=== PATIENT | female | born 1960 | race Caucasian/White ===

== ENCOUNTER 2022-03-08 23:33 | Observation (INO) | payer OTHER, SELFPAY ==
--- NOTE | 2022-03-08 | IR_ITS ---
APPROVED REPORT Patient Location: Emergent Dietitian Teaching: BLUE Ayala RT (R) PROCEDURES Right radial artery cannulation Left heart catheterization with ventriculogram INDICATION Typical angina, EKG suggestive of ST elevation HI SCAI INDICATION EKG suggestive of ST elevation HI and chest pain Informed consent was obtained prior to the procedure. COMPLICATIONS None Estimated Blood Loss: Less than 10 ML TECHNIQUE One percent lidocaine used to anesthetize the right anterior aspect of the wrist. The right radial artery was accessed via the Seldinger technique. A 6 Latvian sheath was placed in the right radial artery. 200 mcg of nitroglycerin and 2000 U Heparin were given through the arterial sheath. The EBU 3.5 guide catheter, JR4 diagnostic catheter and pigtail catheter were also used to perform left heart catheterization, left ventriculogram and selective coronary angiogram. At the end of the procedure the good Daily with sheath was removed good hemostasis was achieved using Traclet band, patient was transferred to the postop holding area in stable condition. ANGIOGRAPHIC RESULTS The left main artery Patent The left anterior descending artery Patent The circumflex artery Patent The right coronary artery Dominant and patent The HOLDER ventriculogram reveals Apical akinesia and hyperdynamic basal segments. EF 35 to 40%. Takotsubo cardiomyopathy The left ventricular end-diastolic pressure 20 mmHg IMPRESSION Normal coronary arteries Takotsubo cardiomyopathy EF 35 to 40% Recommend standard GDMT treatment for heart failure with reduced EF Electronically signed by : Kailash Patrick, 04/04/2022 11:35:15
[2022-03-08 22:16] VITALS: BMI 21.4
[2022-03-08 23:00] VITALS: BP 91/61; PULSE 83; RESP 17; O2SAT 100
[2022-03-08 23:05] VITALS: BP 98/65; PULSE 83; RESP 18; O2SAT 99
[2022-03-08 23:07] VITALS: PULSE 78
[2022-03-08 23:10] VITALS: BP 95/81; PULSE 88; RESP 17; O2SAT 97
[2022-03-08 23:15] VITALS: BP 100/66; PULSE 91; RESP 18; O2SAT 98
[2022-03-08 23:39] VITALS: BMI 22.3
[2022-03-08 23:44] LABS: Coronavirus 19, PCR Not Detected (NotDetected); Influenza A, PCR Not Detected (NotDetected); Influenza B, PCR Not Detected (NotDetected)
[2022-03-08 23:45] VITALS: BP 97/55; PULSE 86; RESP 17; TEMP 36.8; O2SAT 97
--- NOTE | 2022-03-08 23:45 | PC.NURSE ---
PT ARRIVED VIA STRETCHER FROM COMPUTER ART INSTRUCTOR @ [id number]
--- NOTE | 2022-03-08 23:57 | PC.NURSE ---
pt admitted to 218 from lift slab operator
[2022-03-09] VITALS (14 sets, daily range): BP systolic 92–124; BP diastolic 55–78; PULSE 74–91; RESP 12–19; TEMP 36.5–36.8; O2SAT 96–100
--- NOTE | 2022-03-09 | PC.NURSE ---
lab called to see if needed to collect ordered troponin, RN asked laborer cutting tool rn's if still need to collect and was told no that it was prior to pt going to laborer cutting tool
[2022-03-09 00:10] LABS: CATHL Activated Clotting Time 222 SEC (74-125)
[2022-03-09 06:08] LABS: Basophils % 0.2 % (0.1-2.0); Eosinophils % 0.3 % (0.1-12.0); Hematocrit 36.3 % (37.0-47.0); Hemoglobin 11.8 g/dL (12.2-16.2); Lymphocytes # 0.5 K/mm3 (0.7-4.5); Lymphocytes % 8.9 % (10-50); Mean Corpuscular HGB Conc 32.5 g/dL (31.8-35.4); Mean Corpuscular Hemoglobin 30.3 pg (27.0-31.2); Mean Corpuscular Volume 93.1 fl (81-99); Mean Platelet Volume 7.9 fl (7.4-10.4); Monocytes # 0.1 K/mm3 (0.1-1.0); Monocytes % 1.3 % (1.7-9.3); Neutrophils # 4.9 K/mm3 (1.8-7.8); Neutrophils % 89.4 % (37.0-80.0); Platelet Count 254 K/mm3 (142-424); Red Cell Distribution Width 12.9 % (11.5-17.5); White Blood Count 5.4 K/mm3 (4.8-10.8)
[2022-03-09 06:10] LABS: MANUAL DIFFERENTIAL MANUAL DIFFERENTIAL (MANUAL DIFF)
--- NOTE | 2022-03-09 06:15 | ECG_ITS ---
APPROVED REPORT Exam: Resting ECG HR:66 bpm ECG Measurements Heart Rate 66 AXES MO 171 P 35 QRSd 105 QRS -38 QT 479 T 237 QTc 493 Conclusion SINUS RHYTHM LEFT AXIS DEVIATION [QRS AXIS < -30] ST DEVIATION AND MODERATE T-WAVE ABNORMALITY, CONSIDER ANTEROLATERAL ISCHEMIA [-0.1+ mV T-WAVE IN V3-V6] ST DEVIATION AND MODERATE T-WAVE ABNORMALITY, CONSIDER INFERIOR ISCHEMIA [-0.1+ mV T-WAVE IN II/aVF] ABNORMAL ECG UNCONFIRMED REPORT Electronically signed by : Steven Stone MD 03/09/2022 20:36:20
[2022-03-09 06:18] LABS: Chloride 109 mmol/L (98-107)
[2022-03-09 06:19] LABS: Potassium 3.7 mmoL/L (3.5-5.1); Sodium 138 mmol/L (136-145)
[2022-03-09 06:21] LABS: Alanine Aminotransferase 24 U/L (12-78); Aspartate Amino Transferase 44 U/L (14-36); Blood Urea Nitrogen 17 mg/dl (7-17); Creatinine Clearance Estimated 54 mL/min (50-200); Estimated Glomerular Filt Rate 101 ml/min (>60); GFR (African American) 122 ML/MIN (>60)
[2022-03-09 06:22] LABS: Albumin Level 3.8 g/dl (3.5-5.0); Albumin/Globulin Ratio 1.5 (1.1-1.8); Alkaline Phosphatase 51 U/L (38-126); Anion Gap 8.7 mEq/L (5-15); Calcium 9.3 mg/dl (8.4-10.2); Carbon Dioxide 24 mmol/L (22.0-30.0); Chol/HDL Ratio 3.4 (1-3.5); Cholesterol 186 mg/dl (140-200); Globulin 2.5 g/dL (1.3-3.2); Glucose 178 mg/dl (74-100); HDL Cholesterol 54 mg/dl (40-60); Total Protein,Serum 6.3 g/dl (6.3-8.2); Triglycerides 35 mg/dl (30-150); VLDL Cholesterol 7 mg/dL (0-40)
[2022-03-09 06:26] LABS: Bilirubin,Total < 0.1 mg/dl (0.2-1.3)
[2022-03-09 06:32] LABS: Lymphocytes % 16 % (10-50); Neutrophils % 84 % (42-76); Total Cells Counted 100
[2022-03-09 06:33] LABS: Direct LDL Cholesterol 102.78 mg/dL (100-129); Platelet Estimate Normal; RBC Morphology Normal
[2022-03-09 06:53] LABS: Thyroid Stimulating Hormone 1.08 uIU/mL (0.465-4.68)
--- NOTE | 2022-03-09 08:20 | HMH.PHAVTE ---
[facility] Pharm[facility] VTE Monitoring - Patient Demographics Admission date: 03/09/22 Report Date: 03/09/22 Time: 08:20 Allergies/Adverse Reactions: Patient Allergies levofloxacin [From Levaquin] Allergy (Verified 03/08/22 22:16) Height: 1.63 m Weight: 59.222 kg - VTE Risk Labs: VTE Related Lab Results Hgb 11.8 g/dL (12.2-16.2) L 03/09/22 05:34 Hct 36.3 % (37.0-47.0) L 03/09/22 05:34 Plt Count 254 K/mm3 (142-424) 03/09/22 05:34 BUN 17 mg/dl (7-17) 03/09/22 05:34 Creatinine 0.60 mg/dl (0.52-1.04) 03/09/22 05:34 Estimated Creat Clear 54 mL/min (50-200) 03/09/22 05:34 Clinical Trial Participant: No - Prophylaxis VTE Prophylaxis Ordered?: Yes Types of VTE Prophylaxis: TEDS Knee High
--- NOTE | 2022-03-09 08:33 | HMH.HPDC ---
General - General Admission date:: 03/08/22 Discharge date: 03/09/22 *Admission Date: 03/09/22 *Chief complaint: Chest pain with shortness of breath *History of present illness: Ms. Humphrey is a 61-year-old female with a history of hypertension, chronic bronchitis and allergies who presented to the [facility] emergency room complaining of left upper abdominal and left lower chest discomfort. This was associated with some shortness of breath. She describes the pain as intermittent and sharp. With evaluation in the emergency room at [facility] they felt like she was having a STEMI with EKG changes and she was transferred to [facility] and with direct to the Pilot Fuel Engineer. Dr. Stallings was consulted. Catheterization report is pending but patient states that her arteries were normal and she did not have a heart attack. She apparently had some steroids at [facility] which corrected her shortness of breath. This morning she feels fine and is hungry and would like some food. Laboratory data shows normal sodium and potassium and renal function. TSH was normal at 1.08. [facility] History Medical History: Reports:: Asthma, Hypertension *Have you ever received a pneumonia vaccine?: Yes *Have you received a flu vaccine this season?: Yes Other Medical History: Reports: Arthritis. Denies: Hypothyroidism Other Surgeries: Yes: Appendectomy Comment: Nasal surgery for blockage; surgery on her little finger. - *Social History Smoking Status: Former smoker Alcohol Intake: never *Occupational Status:: retired Housing: house Household Members: spouse *Travel in the last 8 weeks: None Family Hx:: No significant family history Review of Systems - Constitutional Denies fever(s) - Eyes Denies change in vision - ENT Reports post nasal drip, Denies ear pain, Denies headache(s), Denies sore throat - *Cardiovascular Reports chest pain, Reports shortness of breath, Denies leg swelling - *Respiratory Reports shortness of breath, Reports wheezing, Denies cough - *Gastrointestinal Reports heartburn, Denies abdominal pain, Denies vomiting blood, Denies bright, red blood in stools, Denies black, tarry stools, Denies nausea, Denies vomiting - *Genitourinary Denies difficulty urinating - *Musculoskeletal Reports joint pain, Denies abnormal walking - *Neurologic Denies abnormal walking, Denies abnormal speech, Denies dizziness, Denies headache(s), Denies lack of coordination, Denies seizure-like activity Exam Vital signs and Labs for Last 24 Hours: Temp Pulse Resp BP Pulse Ox 97.7 F 80 17 104/69 L 98 03/09/22 08:00 03/09/22 08:00 03/09/22 08:00 03/09/22 08:00 03/09/22 08:00 Laboratory Results - last 24 hr 03/08/22 22:19: Activated Clotting Time 222 H* 03/08/22 23:03: SARS-CoV-2 (PCR) Not detected, Influenza A Untype (PCR) Not detected, Influenza Type B (PCR) Not detected 03/09/22 05:34: WBC 5.4, RBC 3.90 L, Hgb 11.8 L, Hct 36.3 L, MCV 93.1, MCH 30.3, MCHC 32.5, RDW 12.9, Plt Count 254, MPV 7.9, Neut % (Auto) 89.4 H, Lymph % (Auto) 8.9 L, [place] % (Auto) 1.3 L, Eos % (Auto) 0.3, Baso % (Auto) 0.2, Neut # (Auto) 4.9, Lymph # (Auto) 0.5 L, [place] # (Auto) 0.1, Eos # (Auto) 0.0, Baso # (Auto) 0.0, Total Counted 100, Neutrophils % (Manual) 84 H, Lymphocytes % (Manual) 16, Platelet Estimate Normal, RBC Morphology Normal 03/09/22 05:34: Sodium 138, Potassium 3.7, Chloride 109 H, Carbon Dioxide 24, Anion Gap 8.7, BUN 17, Creatinine 0.60, Estimated Creat Clear 54, Estimated GFR 101, Est GFR ( Amer) 122, Glucose 178 H, Calcium 9.3, Total Bilirubin < 0.1 L, AST 44 H, ALT 24, Alkaline Phosphatase 51, Total Protein 6.3, Albumin 3.8, Globulin 2.5, Albumin/Globulin Ratio 1.5, Triglycerides 35, Cholesterol 186, LDL Cholesterol Direct 102.78, VLDL Cholesterol 7, HDL Cholesterol 54, Cholesterol/HDL Ratio 3.4, TSH 1.08 I & O for Last 24 hours: Intake & Output 03/06/22 03/07/22 03/08/22 03/09/22 11:59 11:59 11:59 11:59
--- NOTE | 2022-03-09 10:01 | CT_ITS ---
FINAL REPORT CLINICAL HISTORY: enlarged aortic root FINDINGS: Thin section axial CT images of the chest were obtained with contrast. 3D reformatted images were also obtained. This study was performed with techniques to keep radiation doses as low as reasonably achievable (ALARA). Individualized dose reduction techniques using automated exposure control or adjustment of mA and/or kV according to the patient's size were employed. There is no evidence of pulmonary embolism. There is ectasia of the ascending aorta at 4 cm. There is no evidence of thoracic aortic dissection. There is no evidence of mediastinal or hilar mass or adenopathy. There is mild scarring. There is mild bibasilar atelectasis. There is a small left pleural effusion. Limited images of the upper abdomen demonstrate soft tissue partially surrounding the upper abdominal aorta of uncertain significance. IMPRESSION: Ectasia of the ascending aorta at 4 cm. Soft tissue partially surrounds the upper abdominal aorta of uncertain significance. 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 Follow-up abdomen CT may be helpful. Reviewed, Interpreted and Dictated by Laci Taylor III, MD Transcribed by Behzad Noel Authenticated and [facility]
--- NOTE | 2022-03-09 10:20 | HMH.CNCARD ---
History of Present Illness Consult date: 03/09/22 Requesting physician: Saurabh Rae Consult reason: shortness of breath Chief complaint: SOA History of present illness: This is a 61-year-old white female who presented to an [facility] hospital with shortness of breath. The patient states that she had been short of breath for approximately 2 days prior to going to the hospital and felt as if she was having an asthma exacerbation. She states that she was short of breath with any exertion and improved with rest. She also described pain in the central aspect of her chest that was intermittent and sharp. She states that this would occur with exertion as well and improved with rest. While she was at [facility] emergency department they felt like she was having EKG changes consistent with a STEMI. The patient was transferred here to [facility] and went directly to the cardiac catheterization laboratory. The on-call steel rigger took the patient to the Learning Center Instructor and she had normal coronary arteries with LV dysfunction most consistent with Takotsubo's cardiomyopathy. She does report that she feels much better at this time. She denies any shortness of breath today. She denies any chest pain or pressure. She denies any edema. She denies any fever, chills, nausea, vomiting, diarrhea, PND or orthopnea. The patient is adamant that she would like to be discharged home today. [facility] History I have reviewed the patient's past medical history: Yes Medical History: Reports:: Asthma, Hypertension *Have you ever received a pneumonia vaccine?: Yes *Have you received a flu vaccine this season?: Yes Other Medical History: Reports: Arthritis. Denies: Hypothyroidism Other Surgeries: Yes: Appendectomy - *Social History Smoking Status: Former smoker Alcohol Intake: never *Occupational Status:: retired Housing: house Household Members: spouse *Travel in the last 8 weeks: None Family Hx:: No significant family history Meds Home Medications Medication Instructions Recorded Confirmed Type Cetirizine HCl [Zyrtec 10mg Tab*] 10 mg PO DAILY 03/08/22 03/08/22 History lisinopriL [Lisinopril] 5 mg PO DAILY 03/08/22 03/08/22 History Montelukast Sodium [Singulair 10mg 10 mg PO PM 03/09/22 03/09/22 History tablet] Allergies Allergy/AdvReac Type Severity Reaction Status Date / Time levofloxacin [From Levaquin] Allergy Verified 03/08/22 22:16 Exam Vital signs and Labs for Last 24 Hours: Temp Pulse Resp BP Pulse Ox 97.7 F 80 17 104/69 L 100 03/09/22 08:00 03/09/22 08:00 03/09/22 08:00 03/09/22 08:00 03/09/22 08:00 Laboratory Results - last 24 hr 03/08/22 22:19: Activated Clotting Time 222 H* 03/08/22 23:03: SARS-CoV-2 (PCR) Not detected, Influenza A Untype (PCR) Not detected, Influenza Type B (PCR) Not detected 03/09/22 05:34: WBC 5.4, RBC 3.90 L, Hgb 11.8 L, Hct 36.3 L, MCV 93.1, MCH 30.3, MCHC 32.5, RDW 12.9, Plt Count 254, MPV 7.9, Neut % (Auto) 89.4 H, Lymph % (Auto) 8.9 L, [place] % (Auto) 1.3 L, Eos % (Auto) 0.3, Baso % (Auto) 0.2, Neut # (Auto) 4.9, Lymph # (Auto) 0.5 L, [place] # (Auto) 0.1, Eos # (Auto) 0.0, Baso # (Auto) 0.0, Total Counted 100, Neutrophils % (Manual) 84 H, Lymphocytes % (Manual) 16, Platelet Estimate Normal, RBC Morphology Normal 03/09/22 05:34: Sodium 138, Potassium 3.7, Chloride 109 H, Carbon Dioxide 24, Anion Gap 8.7, BUN 17, Creatinine 0.60, Estimated Creat Clear 54, Estimated GFR 101, Est GFR ( Amer) 122, Glucose 178 H, Calcium 9.3, Total Bilirubin < 0.1 L, AST 44 H, ALT 24, Alkaline Phosphatase 51, Total Protein 6.3, Albumin 3.8, Globulin 2.5, Albumin/Globulin Ratio 1.5, Triglycerides 35, Cholesterol 186, LDL Cholesterol Direct 102.78, VLDL Cholesterol 7, HDL Cholesterol 54, Cholesterol/HDL Ratio 3.4, TSH 1.08 I & O for Last 24 hours: Intake & Output 07/29/03/07/22 03/08/22 03/09/22 23:59 23:59 23:59 23:59 Output Total 0 / 0 Balance 0 / 0 Weight 130 lb 9 oz
--- NOTE | 2022-03-09 23:32 | CA_ITS ---
APPROVED REPORT EXAM: Comprehensive 2D, Doppler, and color-flow Echocardiogram Bench Assembler: Gwen Perez CRT Ht: 5 ft 4 in Wt: 125lbs BSA: 1.60 BP: 116/78 mmHg Indications: Chest Pain, Shortness of Breath, Hypertension/HDD 2D Dimensions LVOT 1.75 cm (M/F) 1.5-2.5 LA Volume 25.60 mL LA Volume Index 16.00 mL/m2 (M/F) 16-34 M-Mode Dimensions RVDd 2.43 cm (0.9-2.6) LA Diam 2.43 cm (1.9-4.0) LVDd 4.58 cm (3.5-5.7) Ao Diam 4.19 cm (2.0-3.7) LVDs 3.19 cm (3.5-5.7) IVSd 1.24 cm (0.6-1.1) PWd 0.86 cm (0.6-1.1) EF (Teich) 57.80% FS 30.30% EDV (Teich) 96.30 mL TAPSE 2.66 (<1.7) ESV (Teich) 40.60 mL LV Diastology E Decel Time 157.00 (160-240 msec) E/A Ratio 0.99 MED E' 4.90 (< 7 cm/sec) MED A' 12.10 cm/s E'/MED E' Ratio 17.69 (>14) LAT E' 6.40 (<10 cm/sec) LAT A' 15.70 cm/s E/LAT E' Ratio 13.55 (>14) Aortic Valve AI PHT 388.00 ms AO Peak GR. 9.70 mmHg Mitral Valve MV E Max Donny. 87.00 (40-130 cm/s) MV A Velocity 87.00 (40-130 cm/s) E/A Ratio 0.99 MV Decel. Time 157.00 (160-240 ms) MV PHT 46.00 ms Pulmonary Valve PV Peak Velocity 143.00 (50-150 cm/s) Tricuspid Valve TR P. Velocity 233.00 cm/s RAP Estimate 10.00 mmHg RVSP 31.70 mmHg Left Ventricle Left atrium is mildly enlarged, left ventricle is normal size mild concentric left ventricular hypertrophy, estimated ejection fraction of 45%, there is marked hypokinesis involving distal septum, apex and anterior apical wall. Grade 1 diastolic dysfunction seen with tissue Doppler evidence of raise left atrial pressure. Right Ventricle Right atrium and right ventricle are normal size and contractility, there is an echodense linear structures in the right ventricle which is likely a pacemaker lead. Aortic Valve Aortic valve is thickened and calcified without aortic stenosis, aortic root is enlarged. There is mild aortic insufficiency. Mitral Valve Mitral valve leaflets are minimally thickened, there is mild mitral regurgitation. Tricuspid Valve Tricuspid valve grossly normal, there is mild tricuspid regurgitation, calculated right ventricular systolic pressure is of mercury. Pulmonic Valve Pulmonic valve is poorly visualized. Great Vessels Aortic root is enlarged measuring 3.8 cm. Inferior vena cava is mildly dilated without significant inspiratory collapse. Pericardium No significant pericardial effusion noted. Conclusion 1. Mildly enlarged atrium, normal left ventricular size, estimated ejection fraction 45% with segmental wall motion abnormality described above, grade 1 diastolic dysfunction seen with tissue Doppler evidence of raise left atrial pressure. 2. Enlarged aortic root, there is no aortic stenosis, there is mild aortic insufficiency. 3. Mild mitral and tricuspid regurgitation, calculated right ventricular systolic pressure 32 mmHg. 4. No significant pericardial effusion noted. 5. Inferior vena cava is mildly dilated without significant inspiratory collapse. Electronically signed by : Kem France MD 03/09/2022 09:31:53
--- NOTE | 2022-03-10 15:25 | CARE MANAGER ---
Called and spoke with patient regarding post discharge status. Patient states that she was able to meat pickler her medications and plans to attend her f/u appts. She states that she is feeling better and has no issues at this time
== END 2022-03-09 13:56 | disposition home or self-care (01) ==
LOC: 2ND 23:47
PROVIDERS: Internal Medicine; Internal Medicine Interventional Cardiology; Admitting Provider Family Medicine; PCP Family Medicine; Visit Provider Family Medicine
DX: I51.81 Takotsubo syndrome (principal); I10 Essential (primary) hypertension; R06.02 Shortness of breath; Z87.891 Personal history of nicotine dependence; I77.89 Other specified disorders of arteries and arterioles; J42 Unspecified chronic bronchitis; I35.1 Nonrheumatic aortic (valve) insufficiency
CPT/HCPCS: 36415; 71275; 80053; 80061; 84443; 85007; 85025; 85347; 93005; 93306; 93458; 99152; 99153; C1725; C1769; C9803; G0378; J1644; Q9967; U0003; U0005

== ENCOUNTER → 2022-07-07 09:58 | Outpatient (CLI) | payer OTHER, SELFPAY ==
--- NOTE | 2022-07-07 10:01 | CA_ITS ---
APPROVED REPORT EXAM: Comprehensive 2D, Doppler, and color-flow Echocardiogram Regulatory Internship: Reba Ramos RVT Ht: 5 ft 4 in Wt: 126lbs BSA: 1.61 BP: 130/79 mmHg Indications: TAKOTSUBO CM EF OF 45% ON 03/09/22,HX [place], THORACIC AA,HTN,EX SMOKER 2D Dimensions LVOT 2.14 cm (M/F) 1.5-2.5 LA Volume 26.80 mL LA Volume Index 16.75 mL/m2 (M/F) 16-34 M-Mode Dimensions RVDd 3.07 cm (0.9-2.6) LA Diam 3.61 cm (1.9-4.0) LVDd 4.06 cm (3.5-5.7) Ao Diam 2.98 cm (2.0-3.7) LVDs 2.64 cm (3.5-5.7) IVSd 0.89 cm (0.6-1.1) PWd 1.00 cm (0.6-1.1) EF (Teich) 64.70% FS 35.00% EDV (Teich) 72.50 mL TAPSE 1.55 (<1.7) ESV (Teich) 25.60 mL LV Diastology E Decel Time 180.00 (160-240 msec) E/A Ratio 0.9 MED E' 4.80 (< 7 cm/sec) E'/MED E' Ratio 15.10 (>14) LAT E' 6.50 (<10 cm/sec) E/LAT E' Ratio 11.15 (>14) Aortic Valve AI PHT 471.00 ms AO Peak GR. 12.50 mmHg Mitral Valve MV E Max Donny. 73.00 (40-130 cm/s) MV A Velocity 82.00 (40-130 cm/s) E/A Ratio 0.88 MV Decel. Time 180.00 (160-240 ms) MV PHT 53.00 ms Pulmonary Valve PV Peak Velocity 58.00 (50-150 cm/s) Tricuspid Valve TR P. Velocity 252.00 cm/s RAP Estimate 10.00 mmHg RVSP 35.40 mmHg Left Ventricle Left atrium is mildly enlarged, left ventricle is normal size, mild concentric left ventricular hypertrophy, estimated ejection fraction 55% with no regional wall motion abnormality, grade 1 diastolic dysfunction seen without tissue Doppler evidence of raise left atrial pressure. Right Ventricle Right atrium and right ventricle are mildly enlarged with normal contractility. Aortic Valve Aortic valve is minimally thickened and fibrosed there is no aortic stenosis, there is mild aortic insufficiency. Mitral Valve Mitral valve is grossly normal, there is mild mitral regurgitation. Tricuspid Valve Tricuspid valve grossly normal, there is mild tricuspid regurgitation, calculated right ventricular systolic pressure 35 mmHg. Pulmonic Valve Pulmonic valve is poorly visualized. Great Vessels Aortic root is ascending aorta is mildly dilated. Inferior vena cava is poorly visualized. Pericardium No significant pericardial effusion noted. Conclusion 1. Mild biatrial enlargement, normal left ventricular size, mild concentric left ventricular hypertrophy, estimated ejection fraction 55% with no regional wall motion abnormality, grade 1 diastolic dysfunction seen without tissue Doppler evidence of raise left atrial pressure. 2. Mildly enlarged right ventricle with normal contractility. 3. Ascending aorta and aortic root is mildly enlarged, there is no aortic stenosis, there is mild aortic insufficiency. 4. Mild mitral and tricuspid regurgitation, calculated right ventricular systolic pressure is 35 mmHg. 5. No significant pericardial effusion noted. 6. Inferior vena cava is poorly visualized. Electronically signed by : Kem France MD 07/07/2022 20:35:23
== END ==
PROVIDERS: PCP Family Medicine; Visit Provider Nurse Practitioner Family
DX: I51.81 Takotsubo syndrome (principal); I51.9 Heart disease, unspecified
CPT/HCPCS: 93306

== ENCOUNTER → 2022-12-09 10:45 | Outpatient (CLI) | payer OTHER, SELFPAY | PROVIDERS: PCP Family Medicine; Visit Provider Physician Assistant | DX: I10 Essential (primary) hypertension (principal); I51.81 Takotsubo syndrome; I71.20 Thoracic aortic aneurysm, without rupture, unspecified; I77.89 Other specified disorders of arteries and arterioles | CPT/HCPCS: 93306 ==

== ENCOUNTER → 2023-03-23 13:01 | Outpatient (CLI) | payer OTHER, SELFPAY ==
--- NOTE | 2023-03-23 13:09 | CT_ITS ---
FINAL REPORT CLINICAL HISTORY: aneurysm aortic root COMPARISON: 03/09/2022 FINDINGS: Thin section axial CT images of the chest were obtained with contrast. 3D reformatted images were also obtained. This study was performed with techniques to keep radiation doses as low as reasonably achievable (ALARA). Individualized dose reduction techniques using automated exposure control or adjustment of mA and/or kV according to the patient's size were employed. There is no evidence of pulmonary embolism. There is no evidence of thoracic aortic dissection. There is ectasia of the ascending aorta measuring 40 mm, was 38 mm. There is no evidence of mediastinal or hilar mass or adenopathy. There is no evidence of pulmonary mass or nodule. No localized inflammatory process is seen within the lungs. Limited images of the upper abdomen again demonstrate soft tissue adjacent to the upper abdominal aorta of uncertain etiology but visually stable. IMPRESSION: No evidence of pulmonary embolism. Stable ectasia of ascending aorta. Stable soft tissue adjacent to the upper abdominal aorta. No mass or localized inflammatory process. Reviewed, Interpreted and Dictated by Laci Taylor III, MD Transcribed by Tete Myers Authenticated and [facility]
== END ==
PROVIDERS: PCP Family Medicine; Visit Provider Nurse Practitioner Family
DX: I71.20 Thoracic aortic aneurysm, without rupture, unspecified (principal)
CPT/HCPCS: 71275; Q9967

== ENCOUNTER 2024-11-23 13:17 | Outpatient (CLI) | payer MEDICARE, OTHER, SELFPAY ==
[2024-11-23] MEDS: SODIUM CHLORIDE 0.9% 10ML SYR (RAD ONLY) 10 ML IV (13:42)
[2024-11-23] MEDS: 0.9 % SODIUM CHLORIDE 50 ML VIAL IV (13:42)
[2024-11-23] MEDS: IOPAMIDOL-370 (76%);100ML BOTTLE 100 ML IV (13:43)
--- NOTE | 2024-11-23 13:45 | CT_ITS ---
FINAL REPORT TECHNIQUE: The patient was injected with IV contrast. Axial images were obtained through the chest in a PE protocol. 3-D reconstruction images were also performed. Individualized dose reduction techniques using automated exposure control or adjustment of the MA and/or KV according to patient's size were employed. CLINICAL HISTORY: thoracic aortic aneurysm f/u COMPARISON: 03/23/2023 FINDINGS: CTA CHEST: Mediastinal vasculature is adequately opacified. There is no aortic dissection. The ascending thoracic aortic noted on the previous CT of 2022 remains present, measuring 40 mm in diameter, unchanged from the prior CT. There is no axillary adenopathy. There is no hilar or mediastinal adenopathy. The heart size is normal. There is no pericardial or pleural effusion. Limited images of the upper abdomen are unremarkable. No suspicious infiltrate or nodule is identified. Chronic scarring is present in the lung bases. IMPRESSION: No significant change in the ascending thoracic aortic aneurysm seen on the prior CT of 03/23/2023. Reviewed, Interpreted and Dictated by Devin Bautista MD Transcribed by Marixa Ortiz Authenticated and . [facility]
== END 2024-11-23 23:59 | disposition home or self-care (01) ==
LOC: RAD 13:19
PROVIDERS: PCP Family Medicine; Visit Provider Nurse Practitioner
DX: I51.9 Heart disease, unspecified (principal); R53.83 Other fatigue; R06.00 Dyspnea, unspecified; R07.9 Chest pain, unspecified; I71.20 Thoracic aortic aneurysm, without rupture, unspecified
CPT/HCPCS: 71275; Q9967

== ENCOUNTER 2024-11-28 11:50 | Outpatient (CLI) | payer MEDICARE, OTHER, SELFPAY ==
--- NOTE | 2024-11-28 | CA_ITS ---
APPROVED REPORT Exam: Exercise Treadmill Technologist: Suzanne Bey Ht: 5 ft 4 in Wt: 129 lbs BSA: 1.62 m2 HR: 59 bpm BP: 128/88 mmHg Rhythm: NSR Stress Test Details Test: Exercise stress testing was performed using a Oskar protocol. HR Resting HR: 59 bpm Max Heart Rate (APMHR): 154 bpm Max HR Achieved: 175 bpm Target HR (85% APMHR): 131 bpm % of APMHR: 114 Recovery HR: 81 bpm HR response to stress: Normal HR response to stress BP Resting BP: 128.0/88.0 mmHg Max BP: 142.0/86.0 mmHg Recovery BP: 121.0/76.0 mmHg BP response to stress: Normal blood pressure response to stress. ECG Resting ECG: Sinus bradycardia ST Change: [address] depression Clinical Exercise duration: 8.25 min Exercise capacity: 10.3 METs Overall Exercise Capacity for Age: Average Stress ECG Conclusion Symptoms: Dyspnea Arrhythmias/Ectopy: PVC ST-T Changes: [address] depression Conclusion: Average exercise capacity. ECG at peak is suggestive of underlying ischemia. Myoview images are reported separately. Electronically signed by : Vivian Hanson MD 11/28/2024 15:29:21
--- NOTE | 2024-11-28 | CA_ITS ---
APPROVED REPORT EXAM: Comprehensive 2D, Doppler, and color-flow Echocardiogram [employer] Installer: Gwen Perez CRT Ht: 5 ft 4 in Wt: 129lbs BSA: 1.62 BP: 106/65 mmHg Indications: Shortness of Breath, Fatigue, Takotsubo Cardiomyopathy, Hypertension/HDD, AI, thoracic aneurysm 2D Dimensions LA Volume 34.60 mL LA Volume Index 20.80 mL/m2 (M/F) 16-34 M-Mode Dimensions RVDd 2.35 cm (0.9-2.6) LA Diam 2.51 cm (1.9-4.0) LVDd 3.80 cm (3.5-5.7) LVDs 2.23 cm (3.5-5.7) IVSd 2.01 cm (0.6-1.1) PWd 0.81 cm (0.6-1.1) EF (Teich) 72.90% FS 41.30% EDV (Teich) 62.00 mL TAPSE 2.02 (<1.7) ESV (Teich) 16.80 mL LV Diastology E Decel Time 177 (160-240 msec) E/A Ratio 0.90 MED A' 8.10 cm/s LAT A' 11.50 cm/s Aortic Valve AI PHT 385.00 ms AO Peak GR. 8.20 mmHg Mitral Valve MV E Max Donny. 54.0 (40-130 cm/s) MV A Velocity 60.0 (40-130 cm/s) E/A Ratio 0.90 MV PHT 52.0 ms Pulmonary Valve PV Peak Velocity 145.0 (50-150 cm/s) Tricuspid Valve TR P. Velocity 245.00 cm/s RAP Estimate 10.00 mmHg RVSP 33.90 mmHg Left Ventricle The left ventricle is normal size. The left ventricular systolic function is normal. The left ventricular ejection fraction is within the normal range. There is marked increase in LV wall thickness. Proximal septal thickening is noted. IVSD is 1.4 cm. There is normal LV segmental wall motion. Transmitral Doppler flow pattern suggests impaired LV relaxation. LVEF is 60%. Right Ventricle The right ventricle is normal size. The right ventricular systolic function is normal. Atria The left atrium size is normal. The right atrium size is normal. There is no Doppler evidence of interatrial shunt. Aortic Valve The aortic valve is mildly thickened. There is no aortic valvular stenosis. Mild aortic regurgitation. Mitral Valve The mitral valve is normal in structure. No evidence of mitral valve stenosis. Trace mitral regurgitation. Tricuspid Valve Tricuspid valve is grossly normal in structure and function. Mild tricuspid regurgitation. RVSP is 20-25 mmHg. Pulmonic Valve The pulmonary valve is normal in structure. Trace pulmonic regurgitation. Great Vessels The aortic root is mildly dilated, measuring 4.2 cm in diameter. The ascending aorta is mildly dilated, measuring 4.0 cm in diameter. IVC is normal in size and collapses >50% with inspiration. Pericardium There is no pericardial effusion. Other Information Study Quality: Fair Conclusion Normal biventricular systolic function. Mild increase in LV wall thickness. Proximal septal thickening with IVSD of 1.4 cm. Mild AI, mild TR. Mildly dilated aortic root (4.2 cm) and proximal ascending aorta (4.0 cm). Clinical correlation with new or recent CTA chest is suggested. In the setting of marked increased LV wall thickness and presence of symptoms, further assessment with cardiac MRI (HCM protocol) is suggested to rule out HCM. Electronically signed by : Vivian Hanson MD 11/28/2024 20:51:11
--- OUTSIDE RECORDS SUMMARY | 2024-11-28 11:53 | XMS_ITS | Continuity of Care Document ---
Author Name [facility] Organization [facility] Care Team Providers Care Television Technician Name Role Phone [facility] Unavailable Unavailable Problems Combined list of problems from Department of Defense and Veterans Affairs facilities. It does not include entries that were removed or entered in error. Problem Status Onset Date Problem Type Date of Resolution Comments Source URGE AND STRESS INCONTINENCE Active Condition DoD NORMAL ROUTINE HISTORY AND PHYSICAL ADULT (18-65) Inactive Condition DoD CELLULITIS OF THE RIGHT RING FINGER Inactive Condition DoD CELLULITIS OF THE LEFT ARM Inactive Condition DoD Vaccines Prophylactic Need Inactive Condition DoD Mammogram - Abnormal Active Condition DoD Mammogram Screening Inactive Condition D oD UPPER RESPIRATORY INFECTION Inactive Condition DoD BUNION RIGHT Active Condition DoD BUNION LEFT Active Condition DoD CERVICALGIA Active Condition DoD TENOSYNOVITIS - TRIGGER FINGER (ACQUIRED) Active Condition DoD visit for: issue repeat prescription Inactive Condition DoD VULVAR ATROPHY Active Condition DoD Gynecologic Services Intrauterine Device (IUD) Removal Active Condition DoD DYSPAREUNIA Active Condition DoD Need For Vaccination Hepatitis B Inactive Condition DoD Laboratory Studies Inactive Condition Do D visit for: refer patient without exam or treatment Inactive Condition DoD visit for: screening exam for human papillomavirus (HPV) Inactive Condition DoD Colonoscopy (Fiberoptic) Screening Inactive Condition DoD VULVAR ULCERATION Active Condition DoD visit for: routine adult H&P Inactive Condition DoD Vaccines Prophylactic Need Against DTP Inactive Condition DoD HYPERTENSION (SYSTEMIC) Active Condition DoD visit for: screening exam Active Condition DoD Blood Pressure Isolated Elevated Active Condition DoD CLOSED FRACTURE OF METATARSAL FIRST RIGHT Active Condition DoD Brace Inactive Condition DoD URINARY TRACT INFECTION Active Condition DoD ROSACEA Active Condition DoD Patient Counseling: Inquiry & Counseling Active Condition DoD CANDIDIASIS VAGINAL Inactive Condition D oD visit for: administrative purpose Inactive Condition DoD Gynecologic Services Intrauterine Device (IUD) Checking Active Condition DoD visit for: screening exam malignant neoplasm breast Inactive Condition DoD Gynecologic Services Intrauterine Device (IUD) Insertion Active Condition DoD visit for: screening exam Inactive Condition Height & Weight Screen Completed: Height and weight noted in vital signs DoD visit for: screening exam osteoporosis Inactive Condition DoD visit for: screening malignant neoplasm colon Inactive Condition DoD visit for: screening exam for malignant neoplasm cervix Inactive Condition pap smear ordered in [facility] ROUTINE GYNECOLOGICAL EXAM WITH CERVICAL PAP SMEAR Inactive Condition pap smear ordered in [facility] Vaccines Prophylactic Need Against Td Inactive Condition [facility] ASTIGMATISM Active Condition DoD PRESBYOPIA Active Condition 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 [facility] visit for: routine eye exam Inactive Condition NAOP OU. [facility] Gynecologic Services Contraceptive Management Active Condition [facility] visit for: ears / hearing exam Inactive Condition [facility] ESOPHAGEAL REFLUX Active Condition Pr ilosec 20 mg daily #30 DoD NORMAL ROUTINE HISTORY AND PHYSICAL Inactive Condition [facility] visit for: services physical Inactive Condition See paper record. [facility] visit for: screening exam pulmonary tuberculosis Inactive Condition [facility] Vaccines Prophylactic Need Against Influenza Inactive Condition [facility] Medications Combined list of outpatient medications from Department of Defense and Veterans Affairs facilities.Medications provided include 1) outpatient medications from the last 15 months, and 2) patient-reported medications. Medication Details Route Status Patient Instructions Prescription Expires Prescription Number Last Dispense Date Ordering Provider Order Date Order Qty Source AMOX TR-POTASSIU M CLAVULANATE (AMOXICILLI N/POTASSIUM CLAV), 875-125 MG, TABLET, ORAL, [facility], 20 ea. BOTTLE Active [id number] 2023 20 Pharmac y Data Transac tion Service Facilit y METOPROLOL SUCCINATE (metoprolol succinate), 25 MG, TAB ER 24H, ORAL, [employer] 1000 ea. BOTTLE Active [id number] 2023 90 Pharmac y Data Transac tion Service Facilit y ROSUVASTATI N CALCIUM (rosuvastat in calcium), 20 MG, TABLET, ORAL, [employer] 1000 ea. BOTTLE Active [id number] 4 2023 90 Pharmac y Data Transac tion Service Facilit y Allergies, Adverse Reactions, Alerts Combined list of allergies from Department of Defense and Veterans Affairs facilities. It does not include entries that were removed or entered in error. Substance Category Reaction Severity Reaction type Status Date Reported Comments Source MONISTAT-GRACIELA M (MICONAZOLE NITRATE) Drug allergy (disorder) Burning Sensation, Rash or Itch, Swelling active 04/17/2011 [facility] Immunizations Combined list of available immunizations from the Department of Defense and Veterans Affairs facilities. Immunization Series Date Given Administered By Site Reaction Lot Number CVX Code Drug Glove Former Status Comments Source zoster recombinant 2021 KINTS, () Not Given zoster recombina nt DoD COVID-19, mRNA, LNP-S, PF, 100 mcg or 50 mcg dose 2021 [place] NUNEZ [employer] (MOD) Not Given COVID-19, mRNA, LNP-S, PF, 100 mcg or 50 mcg dose DoD influenza, recombinant, quadrivalent, injectable, preservative free 2020 TOREY, () Not Given influenza , recombina nt, quadrival ent,injec table, preservat todd free DoD COVID-19, mRNA, LNP-S, PF, 30 mcg/0.3 mL dose 2020 [employer] (PFR) Not Given COVID-19, mRNA, LNP-S, PF, 30 mcg/0.3 mL dose DoD COVID-19, mRNA, LNP-S, PF, 30 mcg/0.3 mL dose 2020 [employer] (PFR) Not Given COVID-19, mRNA, LNP-S, PF, 30 mcg/0.3 mL dose DoD Tdap 2016 ROCK, () Not Given Tdap DoD influenza, injectable, quadrivalent, preservative free 2016 ROCK, () Not Given influenza , injectabl e, quadrival ent, preservat todd free DoD tuberculin skin test; purified protein derivative solution, intradermal 0 2012 BELGICA MONTEJO [id number] Other (OTH) complet ed tuberculi n skin test; purified protein derivativ e solution, intraderm al DoD tuberculin skin test; purified protein derivative solution, intradermal 0 2012 REN ARCINIEGA [id number] Other (OTH) complet ed tuberculi n skin test; purified protein derivativ e solution, intraderm al DoD hepatitis B vaccine, adult dosage 3 2012 VERONA MOREJON [id number] 43 Summize (SKB) complet ed hepatitis B vaccine, adult dosage DoD zoster vaccine, live 1 2012 VERONA MOREJON [id number] Merck (MSD) complet ed zoster vaccine, live DoD influenza virus vaccine, split virus (incl. purified surface antigen)-reti red CODE 1 2010 BELGICA MONTEJO [id number] Sanofi Pasteur (PMC) complet ed influenza virus vaccine, split virus (incl. 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 Location Location Details Encounter Type Encounter Number Reason For Visit Attending Provider ADM Date DC Date Status Disposition Source [facility] FROM OTHER THAN ER OR [facility] [id number] 09/05 [facility] [place] [facility] OUTPAT[facility] [id number] flu shot [facility] FUAD R 07/13 [facility]ased w/o Limitations [facility] OUTPATIENT [id number] ppd ROSS, FUAD R 08/17 [facility] w/o Limitations [facility] OUTPATIENT [id number] PATY Roman 08/20 [facility] w/o Limitations [facility]Fami [facility] OUTPATIENT [id number] ret. phys SEBASTIÁN URENA 08/25 [facility]ased w/o Limitations [facility]y [facility] OUTPATIENT [id number] RETIREM ENT REJI JOHNSON 08/26 Released w/o Limitations [facility]ology [facility]) [facility] TELE CONSULT [id number] mammogr am ANDREY WILLIAM 09/06 [facility]( [facility]) [place] [facility]) OUT[facility] [id number] discuss bc options /tubal ligatio LORENZO Enciso 09/08 [facility] w/o Limitations [facility]Opto metry - [facility]) OUTPATIENT [id number] GALDINO COATS 09/15 [facility]ased w/o Limitations [facility]Op [facility]metry [facility] OUTPATIENT [id number] FUAD ROSS 10/05 [place]ased w/o Limitations [place] [facility] Control Specialist [facility]) OUTPATIENT [id number] pap/mmg ALEJANDRO BUSTILLO 12/02 Released w/o Limitations [facility]) [facility] OUTPATIENT [id number] med refELISABETH Galindo 12/02 Released w/o Limitations [facility]) OUTPATIENT [id number] iud inserti on ALEJANDRO BUSTILLO 12/22 Released w/o Limitations [facility]) [facility]) TELE CONSULT [id number] postcar d ANDREY WILLIAM 12/26 [facility]( [facility](Animal Control Specialist [employer] [facility]) OUTPATIENT [id number] f/u IUD check SAVANNAH BUSTILLOSALINAS Gold 01/19 Released w/o Limitations [facility]) [place] [facility]) OUTPAT[facility] [id number] SIGNATU RE @ RECORD LUCI TRENT 04/15 [facility]ased w/o Limitations [place] [facility](Animal Control Specialist [employer] [facility]) OUTPATIENT [id number] Follow up appt SAVANNAH BUSTILLOORAH Alla 08/23 Released w/o Limitations [facility](Animal Control Special[facility]) [facility]) OUTPATIENT [id number] pt request ing referra l for derm JUAREZANTON DIETZ Yvette 11/16 Released w/o Limitations [facility]) [facility]ula [facility]ory [facility]) OUTPATIENT [id number] pt c/o possib le bladder infecti on KANIKA ORTIZ F. 01/04 Released w/o Limitations [facility]) [facility]neco [facility]y [facility]) OUTPATIENT [id number] pap/mmg ALEJANDRO BUSTILLO [place] 05/02 Released w/o Limitations [facility]) [facility] OUTPATIENT [id number] adult f request ing referra l for stomach problem s MAYCOL STRATTON 07/29 Released w/o Limitations [facility]) OUTPATIENT [id number] adult f c/o injured toe MINESHJOSE HOLGUIN [place] 11/28 Released w/o Limitations [facility]Physic [facility] Therapy [facility]) OUTPATIENT [id number] Surgica l goTabitha pardoanil rst DO, PABLO GHISLAINE Margy Fajardo 11/28 Released w/o Limitations [facility]) [facility] OUTPATIENT [id number] er visit broken right foot told to f/u AMAN12/17 Released w/o Limitations [facility]) OUTPATIENT [id number] hard sole shoe JOEL GHISLAINE R A 12/17 Released w/o Limitations [facility] ical Therapy [facility]) [facility] OUTPATIENT [id number] f/u broken foot TARUN01/03 Released w/o Limitations [facility]) [facility] OUTPATIENT [id number] f/u meds ([facility] ) TARUN02/20 Released w/o Limitations [facility]ation [facility]) OUTPATIENT [id number] REN Schultz 02/20 Released w/o Limitations [facility]Immu nizatio n [facility]) [facility] OUTPATIENT [id number] [facility] ([facility] ) TARUN03/13 Released w/o Limitations [facility]) [facility]Gyneco logy Clinic) OUTPATIENT [id number] SORE IN VAGINAL AREA ([facility] ) ALISSA VELASQUEZ 04/04 Released w/o Limitations [facility]) [facility] TELE CONSULT [id number] pcm:yasemin it; needs referra l extensi ons LUCI ELDER 07/24 [facility]) OUTPATIENT [id number] annual pap smear and mammogr am ALEJANDRO BUSTILLO A 07/31 Released w/o Limitations [facility] TELE CONSULT [id number] referra l-colon oscopy MAGUI SHINE 10/20 [facility] OUTPATIENT [id number] annual blood work MARIMAR RICHEY 12/29 Released w/o Limitations [facility](Immuni [facility]ation [facility] OUTPATIENT [id number] [facility] REN ARCINIEGA 12/29 Released w/o Limitations [facility]Immu [facility]izatio [facility]) [facility]) OUTPATIENT [id number] hep b 1 VERONA MOREJON [place] 01/14 Released w/o Limitations [facility]) [facility]) OUTPATIENT [id number] IUD CHECK(P T SEEN MS. BUSTILLO FOR PROC) ALEJANDRO BUSTILLO A 01/30 Released w/o Limitations [facility] OUTPATIENT [id number] ANNUAL PAP SMEAR ALEJANDRO BUSTILLO A 04/17 Released w/o Limitations [facility] TELE CONSULT [id number] medicat ion refill MARIMAR RICHEY 05/05 [facility]) [facility]neco logy Clinic) TELE CONSULT [id number] DOMINIQUE BUSCH ABOUT ALEJANDRO ROBINS 05/25 [facility]) [facility]Immuni [facility]ation [facility]) OUTPATIENT [id number] Hep B, Flu Shot GUSTABOHUBELGICA B 06/03 Released w/o Limitations [facility](Immu nizatio n Clinic) [facility]) OUTPATIENT [id number] DEISY IS(JAZMINE JENKINS) MARIMAR RICHEY 09/11 Released w/o Limitations [facility] TELE CONSULT [id number] Notes Entered by: MYLA FLORES 29 Oct 2011 0920 ------- ------- ------- ------- -- Gastro referra CHIARA Topete 10/28 [facility] OUTPATIENT [id number] CONGEST ION, SINUS PRESSUR E (KIKA REZA) MARIMAR RICHEY 05/20 Released w/o Limitations [facility] TELE CONSULT [id number] Notes Entered by: MYLA FLORES 07 Jul 2012 0850 ------- ------- ------- ------- -- Rx refill for MARIMAR Cooper 07/07 [facility] TELE CONSULT [id number] Notes Entered by: Jonathon PAN 20 Jul 2012 1047 ------- ------- ------- ------- -- REQ FOR DERM YAN Willams# MARIMAR RICHEY 07/20 [facility] OUTPATIENT [id number] b/p meds (kika reza) SADIE FARMER 09/30 Released w/o Limitations [facility] TELE CONSULT [id number] Notes Entered by: ALISSA HAHN 24 Oct 2012 1414 ------- ------- ------- ------- -- mammogr am documen tation ALISSA HAHN 10/24 Referred for Appointment [facility] OUTPATIENT [id number] F/U ON ANTONIO RESUL;T S(JAZMINE) MARIMAR RICHEY 10/24 Released w/o Limitations [facility] TELE CONSULT [id number] Notes Entered by: CHERYL FLORES 07 Dec 2012 0952 ------- ------- ------- ------- -- MARIMAR Caldwell 12/07 [facility]) OUTPATIENT [id number] Notes Entered by: VERONA MOREJON 07 Dec 2012 1111 ------- ------- ------- ------- -- hep b VERONA MOREJON [place] 12/07 Released w/o Limitations [facility]mu [facility]atio n [facility]) [facility] OUTPATIENT [id number] F/U ER Celluli tis Left Arm - MARIMAR Huynh 12/23 Released w/o Limitations [facility]) OUTPATIENT [id number] BLISTER ON VAG AREA ALEJANDRO BUSTILLO 03/22 Released w/o Limitations [facility]) [facility] TELE CONSULT [id number] Notes Entered by: JEISON CLARK 10 May 2013 0840 ------- ------- ------- ------- -- Relay Health Message MARIMAR RICHEY 05/10 [facility] OUTPATIENT [id number] Notes Entered by: JULISSA BURKETT 12 May 2013 0843 ------- ------- ------- ------- -- MARIMAR NUGENT 05/12 Released w/o Limitations [facility] OUTPATIENT [id number] PHY WORK (JAZMINE) MARIMAR RICHEY 05/23 Released w/o Limitations [facility] OUTPATIENT [id number] Notes Entered by: HU MONTEJO 23 May 2013 1546 ------- ------- ------- ------- -- IMM MARIMAR RICHEY 05/23 Released w/o Limitations [facility] TELE CONSULT [id number] Notes Entered by: LUCIA ROSEN 24 Jul 2013 1433 ------- ------- ------- ------- -- MARIMAR Caldwell 07/24 [facility] TELE CONSULT [id number] Notes Entered by: JEISON CLARK 27 Jul 2013 0753 ------- ------- ------- ------- -- Relay Health Message MARIMAR RICHEY 07/27 [facility] OUTPATIENT [id number] annual ALEJANDRO BUSTILLO 08/10 Released w/o Limitations [facility] OUTPATIENT [id number] COLDS/C ONGESTI ON (SULCarl) MARIMAR RICHEY 02/16 Released w/o Limitations [facility] TELE CONSULT [id number] Notes Entered by: AN CABRERA 03 Jul 2014 1153 ------- ------- ------- ------- -- REFILL RENEWAL FOR HYPERTE NSION - 4 PILLS LEFT - MARIMAR SILVA 07/03 [facility] Procedures Combined list of: 1) Procedures from Department of Veterans Affairs facilities going back up to thelast 18 months, not all [place] non-surgical procedures are included; 2) All procedures from the Department of Defense facilities. Procedure Procedure Type Code Date Perfomer Comments Sourc e INJECTION, TRIAMCINOLONE ACETONIDE, NOT OTHERWISE SPECIFIED, 10 MG [facility] SCREENING PAPANICOLAOU SMEAR; OBTAINING, PREPARING AND CONVEYANCE OF CERVICAL OR VAGINAL SMEAR TO LABORATORY [facility] SKIN TEST; TUBERCULOSIS, INTRADERMAL [facility] SKIN TEST; TUBERCULOSIS, INTRADERMAL [facility] IMMUNIZATION ADMINISTRATION (INCLUDES PERCUTANEOUS, INTRADERMAL, SUBCUTANEOUS, OR INTRAMUSCULAR INJECTIONS); EACH ADDITIONAL VACCINE (SINGLE OR COMBINATION VACCINE/TOXOID) 013 [facility] HEPATITIS B VACCINE (HEPB), ADULT DOSAGE, 3 DOSE SCHEDULE, FOR INTRAMUSCULAR USE [facility] REMOVAL OF INTRAUTERINE DEVICE (IUD) 011 [facility] HEPATITIS B VACCINE (HEPB), ADULT DOSAGE, 3 DOSE SCHEDULE, FOR INTRAMUSCULAR USE [facility] SKIN TEST; TUBERCULOSIS, INTRADERMAL [facility] SCREENING PAPANICOLAOU SMEAR; OBTAINING, PREPARING AND CONVEYANCE OF CERVICAL OR VAGINAL SMEAR TO LABORATORY [facility] TETANUS, DIPHTHERIA TOXOIDS AND ACELLULAR PERTUSSIS VACCINE (TDAP), WHEN ADMINISTERED TO INDIVIDUALS 7 YEARS OR OLDER, FOR INTRAMUSCULAR USE [facility] ORTHOTIC(S) MANAGEMENT AND TRAINING (INCLUDING ASSESSMENT AND FITTING WHEN NOT OTHERWISE REPORTED),UPPER EXTREMITY(IES),LOWER EXTREMITY(IES) AND/OR TRUNK,INITIAL ORTHOTIC(S) ENCOUNTER,EACH 15 MINUTES [facility] SURGICAL BOOT/SHOE, EACH [facility] SCREENING PAPANICOLAOU SMEAR; OBTAINING, PREPARING AND CONVEYANCE OF CERVICAL OR VAGINAL SMEAR TO LABORATORY [facility] SMEAR, PRIMARY SOURCE WITH INTERPRETATION; WET MOUNT FOR INFECTIOUS AGENTS (EG, SALINE, HIWOT INK, SARAH PREPS) 008 [facility] LEVONORGESTREL-RELEA SING INTRAUTERINE CONTRACEPTIVE SYSTEM, 52 MG [facility] BLOOD, OCCULT, BY PEROXIDASE ACTIVITY (EG, GUAIAC), QUALITATIVE, FECES, 1-3 SIMULT DETERM, PERF FOR OTH THAN COLOREC NEOPLASM SCREEN [facility] OTHER INCISION WITH DRAINAGE OF SKIN AND SUBCUTANEOUS TISSUE 003 [facility] INJECTION OF ANTIBIOTIC 02/21/2 003 DoD INCISION AND DRAINAGE OF ABSCESS (EG, CARBUNCLE, SUPPURATIVE HIDRADENITIS, CUTANEOUS OR SUBCUTANEOUS ABSCESS, CYST, FURUNCLE, OR PARONYCHIA); SIMPLE OR SINGLE DoD INJECTION, CEFTRIAXONE SODIUM, PER 250 MG [facility] IMMUNIZATION ADMINISTRATION (INCLUDES PERCUTANEOUS, INTRADERMAL, SUBCUTANEOUS, OR INTRAMUSCULAR INJECTIONS); 1 VACCINE (SINGLE OR COMBINATION VACCINE/TOXOID) DoD COLPOSCOPY OF THE CERVIX INCLUDING UPPER/ADJACENT VAGINA; WITH BIOPSY(S) OF THE CERVIX AND ENDOCERVICAL CURETTAGE DoD INFLUENZA VIRUS VACCINE, TRIVALENT (IIV3), SPLIT VIRUS, 0.5 ML DOSAGE, FOR INTRAMUSCULAR USE DoD IMMUNIZATION ADMINISTRATION (INCLUDES PERCUTANEOUS, INTRADERMAL, SUBCUTANEOUS, OR INTRAMUSCULAR INJECTIONS); 1 VACCINE (SINGLE OR COMBINATION VACCINE/TOXOID) DoD THERAPEUTIC, PROPHYLACTIC OR DIAGNOSTIC INJECTION (SPECIFY MATERIAL INJECTED); SUBCUTANEOUS OR INTRAMUSCULAR DoD IMMUNIZATION ADMINISTRATION (INCLUDES PERCUTANEOUS, INTRADERMAL, SUBCUTANEOUS, OR INTRAMUSCULAR INJECTIONS); 1 VACCINE (SINGLE OR COMBINATION VACCINE/TOXOID) DoD FITTING OF SPECTACLES, EXCEPT FOR APHAKIA; MONOFOCAL DoD PURE TONE AUDIOMETRY (THRESHOLD); AIR ONLY DoD UNLISTED SPECIAL SERVICE, PROCEDURE OR REPORT DoD SKIN TEST; TUBERCULOSIS, INTRADERMAL Do[facility] IMMUNIZATION ADMINISTRATION (INCLUDES PERCUTANEOUS, INTRADERMAL, SUBCUTANEOUS, OR INTRAMUSCULAR INJECTIONS); 1 VACCINE (SINGLE OR COMBINATION VACCINE/TOXOID) DoD INJECTION(S); SINGLE TENDON SHEATH, OR LIGAMENT, APONEUROSIS (EG, PLANTAR FASCIA ) DoD ELECTROCARDIOGRAM, ROUTINE ECG WITH AT LEAST 12 LEADS; WITH INTERPRETATION AND REPORT DoD SKIN TEST; TUBERCULOSIS, INTRADERMAL DoD SCREENING PAPANICOLAOU SMEAR; OBTAINING, PREPARING AND CONVEYANCE OF CERVICAL OR VAGINAL SMEAR TO LABORATORY DoD APPLICATION OF SHORT ARM SPLINT (FOREARM TO HAND); STATIC DoD APPLICATION OF SHORT ARM SPLINT (FOREARM TO HAND); STATIC DoD INJECTION OR INFUSION OF OTHER THERAPEUTIC OR PROPHYLACTIC SUBSTANCE DoD APPLICATION OF SHORT ARM SPLINT (FOREARM TO HAND); STATIC DoD INJECTION, AMPICILLIN SODIUM/SULBACTAM SODIUM, PER 1.5 G DoD TETANUS AND DIPHTHERIA TOXOIDS (TD) ADSORBED WHEN ADMINISTERED TO INDIVIDUALS 7 YEARS OR OLDER, FOR INTRAMUSCULAR USE DoD IMMUNIZATION ADMINISTRATION (INCLUDES PERCUTANEOUS, INTRADERMAL, SUBCUTANEOUS, OR INTRAMUSCULAR INJECTIONS); 1 VACCINE (SINGLE OR COMBINATION VACCINE/TOXOID) DoD THERAPEUTIC, PROPHYLACTIC OR DIAGNOSTIC INJECTION (SPECIFY MATERIAL INJECTED); SUBCUTANEOUS OR INTRAMUSCULAR DoD IMMUNIZATION ADMINISTRATION (INCLUDES PERCUTANEOUS, INTRADERMAL, SUBCUTANEOUS, OR INTRAMUSCULAR INJECTIONS); 1 VACCINE (SINGLE OR COMBINATION VACCINE/TOXOID) DoD IMMUNIZATION ADMINISTRATION (INCLUDES PERCUTANEOUS, INTRADERMAL, SUBCUTANEOUS, OR INTRAMUSCULAR INJECTIONS); EACH ADDITIONAL VACCINE (SINGLE OR COMBINATION VACCINE/TOXOID) DoD BIOPSY OF SKIN, SUBCUTANEOUS TISSUE AND/OR MUCOUS MEMBRANE (INCLUDING SIMPLE CLOSURE), UNLESS OTHERWISE LISTED; SINGLE LESION DoD SKIN TEST; TUBERCULOSIS, INTRADERMAL DoD THERAPEUTIC, PROPHYLACTIC OR DIAGNOSTIC INJECTION (SPECIFY MATERIAL INJECTED); SUBCUTANEOUS OR INTRAMUSCULAR DoD DETERMINATION OF REFRACTIVE STATE DoD THERAPEUTIC, PROPHYLACTIC OR DIAGNOSTIC INJECTION (SPECIFY MATERIAL INJECTED); SUBCUTANEOUS OR INTRAMUSCULAR DoD MENINGOCOCCAL POLYSACCHARIDE VACCINE, SEROGROUPS A, C, Y, W-135, QUADRIVALENT (MPSV4), FOR SUBCUTANEOUS USE DoD SCREENING PAPANICOLAOU SMEAR; OBTAINING, PREPARING AND CONVEYANCE OF CERVICAL OR VAGINAL SMEAR TO LABORATORY DoD YELLOW FEVER VACCINE, LIVE, FOR SUBCUTANEOUS USE DoD INJECTION, DEPO-ESTRADIOL CYPIONATE, UP TO 5 MG DoD THERAPEUTIC, PROPHYLACTIC OR DIAGNOSTIC INJECTION (SPECIFY MATERIAL INJECTED); SUBCUTANEOUS OR INTRAMUSCULAR DoD SCREENING TEST, PURE TONE, AIR ONLY DoD SKIN TEST; TUBERCULOSIS, INTRADERMAL DoD Injection, triamcinolone acetonide, not otherwise specified, [address] Supervised Injection Intramuscular Supervised Injection Intramuscular 27537 MARIMAR RICHEY Screening papanicolaou smear; obtaining, preparing and conveyance of cervical or vaginal smear to laboratory 014 ALEJANDRO BUSTILLO Skin Test Anergy Tuberculin Intradermal Skin Test Anergy Tuberculin Intradermal 10077 013 MARIMAR RICHEY IPPD; Series #: 1; .1 mL; ID; Left Arm; Mfg: Other; Lot: [id number]; VIS given. [facility] Skin Test Anergy Tuberculin Intradermal Skin Test Anergy Tuberculin Intradermal 13150 MARIMAR RICHEY IPPD; Series #: 1; .1 mL; ID; Left Arm; Mfg: Other; Lot: [id number]; VIS given. [facility] Zoster Vaccine, Live Zoster Vaccine, Live 19116 VERONA MOREJON Zoster, Live; Series #: 1; .65 mL; SC; Left Arm; Mfg: Merck; Lot: [id number]; VIS given (Birgit: 05/14/2009). DoD Immunization Administration Each Additional Vaccine Immunization Administration Each Additional Vaccine 55775 VERONA MOREJON Hepatitis B Vaccine (Active); 20 Years and Above Hepatitis B Vaccine (Active); 20 Years and Above 74623 VERONA MOREJON Hep B - Adult; Series #: 3; 1.0 mL; IM; Left Arm; Mfg: Summize; Lot: [id number]. DoD Immunization Administration One Vaccine Immunization Administration One Vaccine 63712 013 VERONA MOREJON Hepatitis B Vaccine (Active); 20 Years and Above 011 BELGICA MONTEJO DoD Immunization Administration One Vaccine Immunization Administration One Vaccine 61323 011 BELGICA MONTEJO DoD Immunization Administration Each Additional Vaccine 011 BELGICA MONTEJO Influenza Split Virus Vaccine Age 3+ Years Intramuscular 011 BELGICA MONTEJO DoD [facility] Intrauterine Device (IUD) Removal [facility] Intrauterine Device (IUD) Removal 24483 011 ALEJANDRO BUSTILLO Hepatitis B Vaccine (Active); 20 Years and Above 011 VERONA MOREJON [facility] Immunization Administration One Vaccine Immunization Administration One Vaccine 10302 011 VERONA MOREJON [facility] Skin Test Anergy tuberculin Skin Test Anergy tuberculin 22863 011 REN ARCINIEGA [facility] Screening papanicolaou smear; obtaining, preparing and conveyance of cervical or vaginal smear to laboratory 010 ALEJANDRO BUSTILLO Tdap Vaccine Tdap Vaccine 96947 010 REN ARCINIEGA [facility] Immunization Administration One Vaccine Immunization Administration One Vaccine 73310 010 REN ARCINIEGA [facility] Physical Therapy Education Orthotics Training 010 ROSA MALDONADO [facility] Surgical boot/shoe, each 010 ROSA MALDONADO [facility] Surgical boot/shoe, each 010 ROSA SHAH [facility] Physical Therapy Education Orthotics Training 010 ROSA SHAH [facility] Screening papanicolaou smear; obtaining, preparing and conveyance of cervical or vaginal smear to laboratory 008 ALEJANDRO BUSTILLO [facility] Vaginal Wet [place] Smear Vaginal [place] 09048 008 ALEJANDRO BUSTILLO [facility] Levonorgestrel-relea sing intrauterine contraceptive system, 52 mg 007 ALEJANDRO BUSTILLO [facility] Intrauterine Device (IUD) Insertion [facility] Intrauterine Device (IUD) Insertion 36866 007 ALEJANDRO BUSTILLO [facility] Fecal Analysis - Occult Blood From Digital Rectal Exam 007 ALEJANDRO BUSTILLO [facility] Screening papanicolaou smear; obtaining, preparing and conveyance of cervical or vaginal smear to laboratory 007 ALEJANDRO BUSTILLO [facility] Appendectomy Appendectomy 36155 007 JAMESON KIRKLAND [facility] Tonsillectomy Tonsillectomy 55288 007 JAMESON KIRKLAND [facility] Open Treatment Of Fractures of Nasal Bone and Septum Open Treatment Of Fractures of Nasal Bone and Septum 79700 007 JAMESON KIRKLAND [facility] Immunization Administration One Vaccine Immunization Administration One Vaccine 29180 FUAD ROSS Td Vaccine Seven Years Of Age And Above Preservative Free FUAD ROSS Determination Of Refractive State Determination Of Refractive State 60095 GALDINO COATS [facility] Fitting Monofocals (Not For Aphakia) [facility] Fitting Monofocals (Not For Aphakia) 71810 GALDINO COATS Ophthalmological Prior Patient Start Comprehensive Care Ophthalmological Prior Patient Start Comprehensive Care 23620 GALDINO COATS Threshold Audiogram (Pure Tone) Threshold Audiogram (Pure Tone) 36148 REJI ONEAL Unlisted Special Service Or Report Unlisted Special Service Or Report 95[address] PATY MCGOVERN Skin Test Anergy Tuberculin Intradermal Skin Test Anergy Tuberculin Intradermal 66155 FUAD ROSS Immunization Administration One Vaccine Immunization Administration One Vaccine 19594 FUAD SALMON Influenza Split Virus Vaccine Age 3+ Years Intramuscular FUAD ROSS Social History Combined list of available smoking, tobacco, and other 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 Social History Type Response Date Comment [facility] e This section is an empty social history section. DoD
--- NOTE | 2024-11-28 12:30 | NM_ITS ---
APPROVED REPORT Exam: Nuclear Stress Test Indication: cp..soa..fatigue..dizziness Patient Location: Outpatient Stress Tech: Suzanne Bey [place] Tech:Ada Rg, ARRT, RT (R)(N) Ht: 5 ft 4 in Wt: 128 lbs Bra Size: b HR: 82 bpm BP: 128/88 mmHg BSA: 1.62 m2 TID: 1.17 BMI: 21.9 History: cp..soa..fatigue..dizziness Procedure: Patient exercised on Oskar protocol 8:25 minutes and sec, resting heart rate 82 bpm, resting blood pressure 128/88 mmHg, with exercise maximum heart rate achived was 175 bpm which is 113 % of the maximum predicted heart rate and blood pressure was 142/86 mmHg. Test was stopped due to sob. Patient denied any complaint of chest pain. Patient has Average exercise capacity, achieved 10.3 METs of workload on treadmill, the blood pressure response to exercise was Normal. Cardiac Stress and Resting SPECT Images: Cardiac Stress and Resting SPECT images were obtained using technetium 99m Myoview 32.9 mCi stress and 10.44 mCi at rest. Resting and stress imaging in supine and prone positions demonstrate no evidence of fixed or reversible perfusion defects. Gated imaging demonstrates normal global and regional LV systolic function. LVEF is calculated at 60%. Conclusion: No evidence of fixed or reversible perfusion defects. Gated imaging demonstrates normal global and regional LV systolic function. LVEF is calculated at 60%. Electronically signed by : Vivian Hanson MD 11/28/2024 15:33:20
[2024-11-28] MEDS: SODIUM CHLORIDE 0.9% 10ML SYR (RAD ONLY) 10 ML IV ×2 (13:36)
[2024-11-28] MEDS: ISOTOPE MYOVIEW (PER STUDY) 1 DOSE IV (13:36)
== END 2024-11-28 23:59 | disposition home or self-care (01) ==
LOC: RAD 11:51
PROVIDERS: PCP Family Medicine; Visit Provider Nurse Practitioner
DX: R07.9 Chest pain, unspecified (principal); R53.83 Other fatigue; R06.00 Dyspnea, unspecified; I51.9 Heart disease, unspecified; I71.20 Thoracic aortic aneurysm, without rupture, unspecified
CPT/HCPCS: 78452; 93017; 93018; 93306; A9502

== ENCOUNTER 2024-12-12 09:39 | Outpatient (CLI) | payer MEDICARE, OTHER, SELFPAY ==
--- OUTSIDE RECORDS SUMMARY | 2024-12-12 09:42 | XMS_ITS | Continuity of Care Document ---
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 [facility] visit for: routine eye exam Inactive Condition NAOP OU. [facility] Gynecologic Services Contraceptive Management Active Condition [facility] visit for: ears / hearing exam Inactive Condition [facility] ESOPHAGEAL REFLUX Active Condition Pr ilosec 20 mg daily #30 DoD NORMAL ROUTINE HISTORY AND PHYSICAL Inactive Condition [facility] visit for: services physical Inactive Condition See paper record. [facility] visit for: screening exam pulmonary tuberculosis Inactive Condition [facility] Vaccines Prophylactic Need Against Influenza Inactive Condition [facility] Medications Combined list of outpatient medications from [...] ORAL, [employer], 20 ea. BOTTLE Active [id number] 2023 20 Pharmac y Data Transac tion Service Facilit y METOPROLOL SUCCINATE (metoprolol succinate), 25 MG, TAB ER 24H, ORAL, [employer] 1000 ea. BOTTLE Active [id number] 4 2023 90 Pharmac y Data Transac tion Service Facilit y ROSUVASTATI N CALCIUM (rosuvastat in calcium), 20 MG, TABLET, ORAL, [employer] 1000 ea. BOTTLE Active [id number] 4 2023 90 Pharmac y Data Transac [...] Rash or Itch, Swelling active 04/17/2011 [facility] Immunizations Combined list of available immunizations from the Department of Defense and Veterans Affairs facilities. 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 (MOD) Not Given COVID-19, mRNA, LNP-S, PF, 100 mcg or 50 mcg dose DoD influenza, recombinant, quadrivalent, injectable, preservative free 2020 TOREY, () Not Given influenza , recombina nt, quadrival ent,injec table, preservat todd free DoD COVID-19, mRNA, LNP-S, PF, 30 mcg/0.3 mL dose 2020 [employer] [place] (PFR) Not Given COVID-19, mRNA, LNP-S, PF, 30 mcg/0.3 mL dose DoD COVID-19, mRNA, LNP-S, PF, 30 mcg/0.3 mL dose 2020 [employer] [place] (PFR) Not Given COVID-19, mRNA, LNP-S, PF, 30 mcg/0.3 mL dose DoD Tdap 2016 ROCK, () Not Given Tdap DoD influenza, injectable, quadrivalent, preservative free 2016 ROCK, () Not Given influenza , injectabl e, quadrival ent, preservat todd free DoD tuberculin skin test; purified protein derivative solution, intradermal 0 2012 BELGICA MONTEJO [id number] Other (OTH) complet ed tuberculi n skin test; purified protein derivativ e solution, intraderm al DoD tuberculin skin test; purified protein derivative solution, intradermal 0 2012 REN ARCINIEGA [id number] 96 Other (OTH) complet ed tuberculi n skin test; purified protein derivativ e solution, intraderm al DoD hepatitis B vaccine, adult dosage 3 2012 VERONA MOREJON [id number] 43 Venturi [employer] (SKB) complet ed hepatitis B vaccine, adult dosage DoD zoster vaccine, live 1 2012 VERONA MOREJON [id number] Merck (MSD) complet ed zoster vaccine, live DoD influenza virus vaccine, split virus (incl. purified surface antigen)-reti red CODE 1 2010 BELGICA MONTEJO [id number] Sanofi Pasteur (PMC) complet ed influenza [...] derivative solution, intradermal 1 2010 REN ARCINIEGA [id number] AVENTIS PASTEUR (GLUE JOINTER FEEDER) complet ed tuberculi n skin test; purified protein derivativ e solution, intraderm al DoD tetanus toxoid, reduced diphtheria toxoid, and acellular pertu is vaccine, adsorbed 0 2009 REN ARCINIEGA [id number] 3aa 115 [employer] (SKB) complet ed tetanus [...] Status Disposition Source [facility] FROM OTHER THAN ER OR [facility] [id number] 09/05 [facility]URNED [facility] DUTY [facility] OUTPATIENT [id number] flu shot ROSS FUAD R 07/13 Released w/o Limitations [facility] OUTPATIENT [id number] ppd ROSS, FUAD R 08/17 Released w/o Limitations [facility]) OUTPATIENT [id number] PATY Roman 08/20 Released w/o Limitations [facility]) [facility](Fami ly Medicine) OUTPATIENT [id number] ret. phys SEBASTIÁN URENA 08/25 Released w/o Limitations [facility]Fa reynaldo Medicin [facility]) [facility]Will ology - [facility]) OUTPATIENT [id number] RETIREM ENT REJI JOHNSON 08/26 Released w/o Limitations [facility](Au diology - [facility]) [facility]) TELE CONSULT [id number] mammogr am ANDREY WILLIAM 09/06 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) TELE CONSULT [id number] postcar d ANDREY WILLIAM 12/26 [facility]( [facility]) [facility]oom Cr[employer] Operator [facility] Team) OUTPATIENT [id number] f/u IUD check SAVANNAH BUSTILLOSALINAS Gold 01/19 Released w/o Limitations [facility]) [facility] OUTPATIENT [id number] SIGNATU RE @ RECORD LUCI TRENT 04/15 Released w/o Limitations [place] [facility]) [facility]([employer] Operator [employer] [facility]) OUTPATIENT [id number] Follow up appt SAVANNAH BUSTILLOORAH Alla 08/23 Released w/o Limitations [facility] [employer] [facility]) [facility]) OUTPATIENT [id number] pt request ing referra l for derm JUAREZANTON DIETZ Yvette 11/16 Released w/o Limitations [facility]Fami ly Practic e [facility]) [facility](Ambula tory Care [facility]) OUTPATIENT [id number] pt c/o possib le bladder infecti on KANIKA ORTIZ F. 01/04 Released w/o Limitations [facility]u [facility]atory [facility]) [facility]Gyneco logy Clinic) OUTPATIENT [id number] pap/mmg ALEJANDRO BUSTILLO Alla 05/02 Released w/o Limitations [facility]) [facility] OUTPATIENT [id number] adult f request ing referra l for stomach problem s MAYCOL STRATTON 07/29 Released w/o Limitations [facility]) OUTPATIENT [id number] adult f c/o injured toe MINESHJOSE HOLGUIN Alla 11/28 Released w/o Limitations [facility]) [facility]Physic al Therapy [facility]) OUTPATIENT [id number] Surgica l goTabitha pardoanil rst DO, PABLO GHISLAINE Margy Fajardo 11/28 Released w/o Limitations [facility]) [facility] OUTPATIENT [id number] er visit broken right foot told to f/u AMAN12/17 Released w/o Limitations [facility]) [facility]) OUTPATIENT [id number] hard sole shoe JOEL GHISLAINE R A 12/17 Released w/o Limitations [facility]) [facility] OUTPATIENT [id number] f/u broken foot TARUN01/03 Released w/o Limitations [facility]) [facility]) OUTPATIENT [id number] f/u meds ([facility] ) TARUN02/20 Released w/o Limitations [facility]Immuni [facility]ation [facility]) OUTPATIENT [id number] REN Schultz 02/20 Released w/o Limitations [facility](Immu nizatio n Clinic) [facility] OUTPATIENT [id number] [facility] ([facility] ) TARUN03/13 Released w/o Limitations [facility](Gyneco logy Clinic) OUTPATIENT [id number] SORE IN VAGINAL AREA ([facility] ) ALISSA VELASQUEZ 04/04 Released w/o Limitations [facility]ogy [facility]) [facility]) TELE CONSULT [id number] pcm:yasemin it; needs referra l extensi ons LUCI ELDER 07/24 [facility]) OUTPATIENT [id number] annual pap smear and mammogr am ALEJANDRO BUSTILLO A 07/31 Released w/o Limitations [facility] TELE CONSULT [id number] referra l-colon oscopy MAGUI SHINE 10/20 [facility] OUTPATIENT [id number] annual blood work MARIMAR RICHEY 12/29 Released w/o Limitations [facility]) [facility](Immuni zation Clinic[facility] OUTPATIENT [id number] [facility] REN ARCINIEGA 12/29 Released w/o Limitations [facility]Immu nizatio n [facility]) [facility]i [facility]ation [facility]) OUTPATIENT [id number] hep b 1 VERONA MOREJON Alla 01/14 Released w/o Limitations [facility]) [facility]) OUTPATIENT [id number] IUD CHECK(P T SEEN MS. BUSTILLO FOR PROC) ALEJANDRO BUSTILLO A 01/30 Released w/o Limitations [facility] OUTPATIENT [id number] ANNUAL PAP SMEAR ALEJANDRO BUSTILLO A 04/17 Released w/o Limitations [facility] TELE CONSULT [id number] medicat ion refill MARIMAR RICHEY 05/05 [facility]) [facility](Gyneco logy Clinic) TELE CONSULT [id number] DOMINIQUE BUSCH ABOUT ALEJANDRO ROBINS 05/25 [facility]ogy [facility]) [facility](Immuni zation Clinic) OUTPATIENT [id number] Hep B, Flu Shot GUSTABOHUBELGICA B 06/03 Released w/o Limitations [facility](Immu nizatio n Clinic) [facility]) OUTPATIENT [id number] DEISY IS(JAZMINE JENKINS) MARIMAR RICHEY 09/11 Released w/o Limitations [facility] TELE CONSULT [id number] Notes Entered by: MYLA FLORES 29 Oct 2011 0920 ------- ------- ------- ------- -- Gastro referra CHIARA Topete 10/28 [facility] OUTPATIENT [id number] CONGEST ION, SINUS PRESSUR E (KIKA REZA) MARIMAR RICHEY 05/20 Released w/o Limitations [facility] TELE CONSULT [id number] Notes Entered by: MYLA FLORES 07 Jul 2012 0850 ------- ------- ------- ------- -- Rx refill for MARIMAR Cooper 07/07 [facility] TELE CONSULT [id number] Notes Entered by: Jonathon PAN 20 Jul 2012 1047 ------- ------- ------- ------- -- REQ FOR DERM YAN Willams# MARIMAR RICHEY 07/20 [facility] OUTPATIENT [id number] b/p meds (kika reza) SADIE FARMER 09/30 Released w/o Limitations [facility] TELE CONSULT [id number] Notes Entered by: ALISSA HAHN 24 Oct 2012 1414 ------- ------- ------- ------- -- mammogr am documen tation ALISSA HAHN 10/24 Referred for Appointment [facility]) [facility] OUTPATIENT [id number] F/U ON ANTONIO RESUL;T S(JAZMINE) MARIMAR RICHEY 10/24 Released w/o Limitations [facility] TELE CONSULT [id number] Notes Entered by: CHERYL FLORES 07 Dec 2012 0952 ------- ------- ------- ------- -- MARIMAR Caldwell 12/07 [facility]ation [facility]) OUTPATIENT [id number] Notes Entered by: VERONA MOREJON 07 Dec 2012 1111 ------- ------- ------- ------- -- hep b VERONA MOREJON Alla 12/07 Released w/o Limitations [facility](Immu [facility]izatio n [facility]) [facility] OUTPATIENT [id number] F/U ER Celluli tis Left Arm - MARIMAR Huynh 12/23 Released w/o Limitations [facility]) OUTPATIENT [id number] BLISTER ON VAG AREA ALEJANDRO BUSTILLO 03/22 Released w/o Limitations [facility]) [facility] TELE CONSULT [id number] Notes Entered by: JEISON CLARK 10 May 2013 0840 ------- ------- ------- ------- -- Relay Health Message MARIMAR RICHEY 05/10 [facility] OUTPATIENT [id number] Notes Entered by: JULISSA BURKETT 12 May 2013 0843 ------- ------- ------- ------- -- MARIMAR NUGENT 05/12 Released w/o Limitations [facility] OUTPATIENT [id number] PHY WORK (JAZMINE) MARIMAR RICHEY 05/23 Released w/o Limitations [facility] OUTPATIENT [id number] Notes Entered by: HU MONTEJO 23 May 2013 1546 ------- ------- ------- ------- -- IMM MARIMAR RICHEY 05/23 Released w/o Limitations [facility] TELE CONSULT [id number] Notes Entered by: LUCIA ROSEN 24 Jul 2013 1433 ------- ------- ------- ------- -- MARIMAR Caldwell 07/24 [facility] TELE CONSULT [id number] Notes Entered by: JEISON CLARK 27 Jul 2013 0753 ------- ------- ------- ------- -- Relay Health Message MARIMAR RICHEY 07/27 [facility]) OUTPATIENT [id number] annual ALEJANDRO BUSTILLO 08/10 Released w/o Limitations [facility]) [facility] OUTPATIENT [id number] COLDS/C ONGESTI ON (SULCarl) MARIMAR RICHEY 02/16 Released w/o Limitations [facility] TELE CONSULT [id number] Notes Entered by: AN CABRERA 03 Jul 2014 1153 ------- ------- ------- ------- -- REFILL RENEWAL FOR HYPERTE NSION - 4 PILLS LEFT - MARIMAR SILVA 07/03 [facility] Procedures Combined list of: 1) Procedures from Department of Veterans Affairs facilities going back up to thelast 18 months, not all [place] non-surgical procedures are included; 2) All procedures from the Department of Defense facilities. Procedure Procedure Type Code Date Perfomer Comments Sourc e OTHER INCISION WITH DRAINAGE OF SKIN AND SUBCUTANEOUS TISSUE DoD INJECTION OF ANTIBIOTIC DoD INCISION AND DRAINAGE OF ABSCESS (EG, CARBUNCLE, SUPPURATIVE HIDRADENITIS, CUTANEOUS OR SUBCUTANEOUS ABSCESS, CYST, FURUNCLE, OR PARONYCHIA); SIMPLE OR SINGLE DoD INJECTION, CEFTRIAXONE SODIUM, PER 250 MG DoD IMMUNIZATION ADMINISTRATION (INCLUDES PERCUTANEOUS, INTRADERMAL, SUBCUTANEOUS, OR INTRAMUSCULAR INJECTIONS); 1 VACCINE (SINGLE OR COMBINATION VACCINE/TOXOID) DoD COLPOSCOPY OF THE CERVIX INCLUDING UPPER/ADJACENT VAGINA; WITH BIOPSY(S) OF THE CERVIX AND ENDOCERVICAL CURETTAGE 002 DoD INFLUENZA VIRUS VACCINE, TRIVALENT (IIV3), SPLIT VIRUS, 0.5 ML DOSAGE, FOR INTRAMUSCULAR USE 002 DoD IMMUNIZATION ADMINISTRATION (INCLUDES PERCUTANEOUS, INTRADERMAL, SUBCUTANEOUS, OR INTRAMUSCULAR INJECTIONS); 1 VACCINE (SINGLE OR COMBINATION VACCINE/TOXOID) 002 DoD THERAPEUTIC, PROPHYLACTIC OR DIAGNOSTIC INJECTION (SPECIFY MATERIAL INJECTED); SUBCUTANEOUS OR INTRAMUSCULAR DoD INJECTION, TRIAMCINOLONE ACETONIDE, NOT OTHERWISE SPECIFIED, 10 MG DoD SCREENING PAPANICOLAOU SMEAR; OBTAINING, PREPARING AND CONVEYANCE OF CERVICAL OR VAGINAL SMEAR TO LABORATORY 014 DoD SKIN TEST; TUBERCULOSIS, INTRADERMAL DoD SKIN TEST; TUBERCULOSIS, INTRADERMAL DoD IMMUNIZATION ADMINISTRATION (INCLUDES PERCUTANEOUS, INTRADERMAL, SUBCUTANEOUS, OR INTRAMUSCULAR INJECTIONS); EACH ADDITIONAL VACCINE (SINGLE OR COMBINATION VACCINE/TOXOID) 013 DoD HEPATITIS B VACCINE (HEPB), ADULT DOSAGE, 3 DOSE SCHEDULE, FOR INTRAMUSCULAR USE 011 DoD REMOVAL OF INTRAUTERINE DEVICE (IUD) 011 DoD HEPATITIS B VACCINE (HEPB), ADULT DOSAGE, 3 DOSE SCHEDULE, FOR INTRAMUSCULAR USE 011 DoD SKIN TEST; TUBERCULOSIS, INTRADERMAL DoD SCREENING PAPANICOLAOU SMEAR; OBTAINING, PREPARING AND CONVEYANCE OF CERVICAL OR VAGINAL SMEAR TO LABORATORY 010 DoD TETANUS, DIPHTHERIA TOXOIDS AND ACELLULAR PERTUSSIS VACCINE (TDAP), WHEN ADMINISTERED TO INDIVIDUALS 7 YEARS OR OLDER, FOR INTRAMUSCULAR USE [facility] ORTHOTIC(S) MANAGEMENT AND TRAINING (INCLUDING ASSESSMENT AND FITTING WHEN NOT OTHERWISE REPORTED),UPPER EXTREMITY(IES),LOWER EXTREMITY(IES) AND/OR TRUNK,INITIAL ORTHOTIC(S) ENCOUNTER,EACH 15 MINUTES DoD SURGICAL BOOT/SHOE, EACH [facility] SCREENING PAPANICOLAOU SMEAR; OBTAINING, PREPARING AND CONVEYANCE OF CERVICAL OR VAGINAL SMEAR TO LABORATORY DoD SMEAR, PRIMARY SOURCE WITH INTERPRETATION; WET MOUNT FOR INFECTIOUS AGENTS (EG, SALINE, HIWOT INK, SARAH PREPS) DoD LEVONORGESTREL-RELEA SING INTRAUTERINE CONTRACEPTIVE SYSTEM, 52 MG DoD BLOOD, OCCULT, BY PEROXIDASE ACTIVITY (EG, GUAIAC), QUALITATIVE, FECES, 1-3 SIMULT DETERM, PERF FOR OTH THAN COLOREC NEOPLASM SCREEN DoD IMMUNIZATION ADMINISTRATION (INCLUDES PERCUTANEOUS, INTRADERMAL, SUBCUTANEOUS, OR INTRAMUSCULAR INJECTIONS); 1 VACCINE (SINGLE OR COMBINATION VACCINE/TOXOID) DoD FITTING OF SPECTACLES, EXCEPT FOR APHAKIA; MONOFOCAL DoD PURE TONE AUDIOMETRY (THRESHOLD); AIR ONLY [facility] UNLISTED SPECIAL SERVICE, PROCEDURE OR REPORT DoD [...] Dr. Supervised Injection Intramuscular Supervised Injection Intramuscular 69460 MARIMAR RICHEY Screening papanicolaou smear; obtaining, preparing and conveyance of cervical or vaginal smear to laboratory 014 ALEJANDRO BUSTILLO Skin Test Anergy Tuberculin Intradermal Skin Test Anergy Tuberculin Intradermal 14162 013 MARIMAR RICHEY IPPD; Series #: 1; .1 mL; ID; Left Arm; Mfg: Other; Lot: [id number]; VIS given. [facility] Skin Test Anergy Tuberculin Intradermal Skin Test Anergy Tuberculin Intradermal 17991 MARIMAR RICHEY IPPD; Series #: 1; .1 mL; ID; Left Arm; Mfg: Other; Lot: [id number]; VIS given. [facility] Zoster Vaccine, Live Zoster Vaccine, Live 04260 VERONA MOREJON Zoster, Live; Series #: 1; .65 mL; SC; Left Arm; Mfg: Merck; Lot: [id number]; VIS given (Birgit: 05/14/2009). DoD Immunization Administration Each Additional Vaccine Immunization Administration Each Additional Vaccine 73024 VERONA MOREJON Hepatitis B Vaccine (Active); 20 Years and Above Hepatitis B Vaccine (Active); 20 Years and Above 86125 VERONA MOREJON Hep B - Adult; Series #: 3; 1.0 mL; IM; Left Arm; Mfg: [employer]; Lot: [id number]. DoD Immunization Administration One Vaccine Immunization Administration One Vaccine 20933 013 VERONA MOREJON Hepatitis B Vaccine (Active); 20 Years and Above 011 BELGICA MONTEJO DoD Immunization Administration One Vaccine Immunization Administration One Vaccine 25984 011 BELGICA MONTEJO DoD Immunization Administration Each Additional Vaccine 011 BELGICA MONTEJO Influenza Split Virus Vaccine Age 3+ Years Intramuscular 011 BELGICA MONTEJO DoD Gynecologic Services Intrauterine Device (IUD) Removal Gynecologic Services Intrauterine Device (IUD) Removal 07543 011 ALEJANDRO BUSTILLO Hepatitis B Vaccine (Active); 20 Years and Above 011 VERONA MOREJON [facility] Immunization Administration One Vaccine Immunization Administration One Vaccine 20310 011 VERONA MOREJON [facility] Skin Test Anergy tuberculin Skin Test Anergy tuberculin 57773 011 REN ARCINIEGA [facility] Screening papanicolaou smear; obtaining, preparing and conveyance of cervical or vaginal smear to laboratory 010 ALEJANDRO BUSTILLO Tdap Vaccine Tdap Vaccine 51347 010 REN ARCINIEGA [facility] Immunization Administration One Vaccine Immunization Administration One Vaccine 32483 010 REN ARCINIEGA [facility] Physical Therapy Education Orthotics Training 010 ROSA MALDONADO [facility] Surgical boot/shoe, each 010 ROSA MALDONADO [facility] Surgical boot/shoe, each 010 ROSA SHAH [facility] Physical Therapy Education Orthotics Training 010 ROSA SHAH [facility] Screening papanicolaou smear; obtaining, preparing and conveyance of cervical or vaginal smear to laboratory 008 ALEJANDRO BUSTILLO [facility] Vaginal Wet Mount Smear Vaginal Wet Mount Smear 39899 008 ALEJANDRO BUSTILLO [facility] Levonorgestrel-relea sing intrauterine contraceptive system, 52 mg 007 ALEJANDRO BUSTILLO Gynecologic Services Intrauterine Device (IUD) Insertion Gynecologic Services Intrauterine Device (IUD) Insertion 41422 007 ALEJANDRO BUSTILLO [facility] Fecal Analysis - Occult Blood From Digital Rectal Exam 007 ALEJANDRO BUSTILLO [facility] Screening papanicolaou smear; obtaining, preparing and conveyance of cervical or vaginal smear to laboratory 007 ALEJANDRO BUSTILLO [facility] Appendectomy Appendectomy 64219 007 JAMESON KIKRLAND [facility] Tonsillectomy Tonsillectomy 33054 007 JAMESON KIRKLAND [facility] Open Treatment Of Fractures of Nasal Bone and Septum Open Treatment Of Fractures of Nasal Bone and Septum 21903 007 JAMESON KIRKLAND [facility] Immunization Administration One Vaccine Immunization Administration One Vaccine 98260 FUAD ROSS Td Vaccine Seven Years Of Age And Above Preservative Free FUAD ROSS Determination Of Refractive State Determination Of Refractive State 37083 GALDINO COATS [facility] Fitting Monofocals (Not For Aphakia) [facility] Fitting Monofocals (Not For Aphakia) 73267 GALDINO COATS Ophthalmological Prior Patient Start Comprehensive Care Ophthalmological Prior Patient Start Comprehensive Care 15961 GALDINO COATS Threshold Audiogram (Pure Tone) Threshold Audiogram (Pure Tone) 47487 REJI ONEAL Unlisted Special Service Or Report Unlisted Special Service Or Report 70558 PATY MCGOVERN Skin Test Anergy Tuberculin Intradermal Skin Test Anergy Tuberculin Intradermal 38086 FUAD ROSS Immunization Administration One Vaccine Immunization Administration One Vaccine 81014 FUAD SALMON Influenza Split Virus Vaccine Age 3+ Years Intramuscular FUAD ROSS Social History Combined list of available smoking, tobacco, and other 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 Social History Type Response Date Comment [facility] e This section is an empty social history section. 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
--- OUTSIDE RECORDS SUMMARY | 2024-12-12 09:43 | XMS_ITS | Continuity of Care Document ---
Author Organization [facility] Phone Care Team Providers Care Crime Analyst Name Role Phone JOSEJERRY ED Carl Primary Care RAMYA CASTILLO Primary Attending Unavailable RAMYA CASTILLO Admitting Unavailable GLORIA ALANIZ Unavailable ALLERGIES AND ADVERSE REACTIONS ALLERGIES AND ADVERSE REACTIONS Code System Allergy Substance Adverse Reaction Date Reaction (Severity) Comment [place] [address] RXNorm Levaquin Adverse reaction to substance Not Specified active [id number] on November 14, 2024 11:54:58 PM [place] 6398 RXNorm LINCOMYCIN Rash Shock active [id number] on November 14, 2024 11:54:58 PM UT RESULTS Patient: CHECO Soria Date of : October 07 9 LABORATORY RESULTS ORDER 100: B-TYPE NATRIURETI C PEPTIDE BNP (LOINC: 36226-9) ORDER DATE: November 14, 2024 9:35:00 PM UT Specimen Source: Whole Blood Specimen Type: Whole blood s ample PERFORMING LAB: [address] [id number] Result Comment: Final Result Date: November 14, 2024 10:22:00 PM UT (TECH: RJV) LOINC TEST FLAG [place] [address]-2 Natriuretic peptide B [Mass/volume] in Serum or Plasma N 17.3 pg/mL 0.0 pg/mL - 100 pg/mL November 14, 2024 10:22:00 PM UT (TECH: RJV) ORDER 200: CBC AUTO W DIFF ( LOINC: 20428-6) ORDER DATE: November 14, 2024 9:35:00 PM UTC Specimen Source: Whole Blood Specimen Type: Whole blood s ample PERFORMING LAB: [address] [id number] Result Comment: Final Result Date: November 14, 2024 10:00:00 PM UTC (TECH: [employer]) LOINC TEST FLAG RESULT REFERENCE RANGE UPDA LORENZO BY 6690-2 Leukocytes [#/volume] in Blood by Automated count N 5.9 10^3/uL 4.5 10^3/uL - 11.5 10^3/uL November 14, 2024 10:00:00 PM UTC (TECH: [employer]) 789-8 Erythrocytes [#/volume] in Blood by Automated count N 4.33 10^6/uL 4.25 10^6/uL - 5.57 10^6/uL November 14, 2024 10:00:00 PM UTC (TECH: [employer]) 718-7 Hemoglobin [Mass/volume] in Blood N 13.0 g/dL 12.0 g/dL - 15.7 g/dL November 14, 2024 10:00:00 PM UTC (TECH: [employer]) 18872-0 Hematocrit [Volume Fraction] of Blood N 38.7 % 36.0 % - 47.0 % November 14, 2024 10:00:00 PM UTC (TECH: [employer]) 787-2 Erythrocyte mean corpuscular volume [Entitic volume] by Automated count N 89.4 fl 80 fl - 95 fl November 14, 2024 10:00:00 PM UTC (TECH: [employer]) 02694-0 Erythrocyte mean corpuscular hemoglobin [Entitic mass] in Blood from [place] by Automated count N 30.0 pg 27.0 pg - 34.0 pg November 14, 2024 10:00:00 PM UTC (TECH: [employer]) 35836-9 Erythrocyte mean corpuscular hemoglobin concentration [Mass/volume] in Blood from Fetus by Automated count N 33.6 g/dL 32.0 g/dL - 36.0 g/dL November 14, 2024 10:00:00 PM UTC (TECH: [employer]) 58022-3 Platelets [#/volume] in Blood N 261 10^3/uL 150 10^3/uL - 450 10^3/uL November 14, 2024 10:00:00 PM UTC (TECH: [employer]) 16780-0 Erythrocyte distribution width [Ratio] N 12.6 % 12.3 % - 15.1 % November 14, 2024 10:00:00 PM UTC (TECH: [employer]) 46403-1 Platelet mean volume [Entitic volume] in Blood by Automated count N 9.0 fl 7.4 fl - 10.4 fl November 14, 2024 10:00:00 PM UTC (TECH: RJV) 43565-0 Granulocytes/100 leukocytes in Blood by Automated count N 65.7 % 40 % - 75 % November 14, 2024 10:00:00 PM UTC (TECH: RJV) 736-9 Lymphocytes/100 leukocytes in Blood by Automated count N 25.7 % 15 % - 57 % November 14, 2024 10:00:00 PM UTC (TECH: RJV) 5905-5 Monocytes/100 leukocytes in Blood by Automated count N 6.1 % 4.0 % - 12.0 % November 14, 2024 10:00:00 PM UTC (TECH: RJV) 713-8 Eosinophils/100 leukocytes in Blood by Automated count N 2.0 % 0.0 % - 4.0 % November 14, 2024 10:00:00 PM UTC (TECH: RJV) 706-2 Basophils/100 leukocytes in Blood by Automated count N 0.3 % 0.0 % - 1.0 % November 14, 2024 10:00:00 PM UTC (TECH: [employer]) 98347-0 Immature granulocytes [#/volume] in Blood N 0.2 % 0.0 % - 0.8 % November 14 10:00:00 PM UTC (TECH: RJV) 62633-1 Granulocytes [#/volume] in Blood by Automated count N 3.85 10^3/uL November 14, 2024 10:00:00 PM UTC (TECH: RJV) 731-0 Lymphocytes [#/volume] in Blood by Automated count N 1.51 10^3/uL November 14, 2024 10:00:00 PM UTC (TECH: RJV) 742-7 Monocytes [#/volume] in Blood by Automated count N 0.36 10^3/uL November 14, 2024 10:00:00 PM UTC (TECH: RJV) 711-2 Eosinophils [#/volume] in Blood by Automated count N 0.12 10^3/uL November 14, 2024 10:00:00 PM UTC (TECH: RJV) 704-7 Basophils [#/volume] in Blood by Automated count N 0.02 10^3/uL November 14, 2024 10:00:00 PM [facility] (TECH: [employer]) 83687-0 Immature granulocytes [#/volume] in Blood N 0.01 10^3/uL November 14 10:00:00 PM [facility] (TECH: [employer]) 47415-0 Manual differential performed [Presence] in Blood N NO November 14, 2024 10:00:00 PM [facility] (TECH: [employer]) ORDER 300: COMP METABOLIC PA GILBERT (LOINC: 18289-4) ORDER DATE: November 14, 2024 9:35:00 PM UT Specimen Source: Plasma Specimen Type: Plasma specim en PERFORMING LAB: [address] [id number] Result Comment: Final Result Date: November 14, 2024 10:21:00 PM [facility] (TECH: [employer]) LOINC TEST FLAG RESULT REFERENCE RANGE UPDA LORENZO BY 2951-2 Sodium [Moles/volume ] in Serum or Plasma N 138 mmol/L 136 mmol/L - 145 mmol/L November 14, 2024 10:21:00 PM [facility] (TECH: [employer]) 2823-3 Potassium [Moles/volume] in Serum or Plasma N 3.7 mmol/L 3.5 mmol/L - 5.1 mmol/L November 14, 2024 10:21:00 PM [facility] (TECH: [employer]) 2075-0 Chloride [Moles/volu me] in Serum or Plasma N 103 mmol/L 98 mmol/L - 107 mmol/L November 14, 2024 10:21:00 PM UT (TECH: [employer]) 2027-9 Carbon dioxide, tota l [Moles/volume] in Serum or Plasma N 29 mmol/L 21 mmol/L - 32 mmol/L November 14, 2024 10:21:00 PM [facility] (TECH: [employer]) 86484-7 Anion gap 3 in Serum or Plasma N 6.0 November 14, 2024 10:21:00 PM [facility] (TECH: [employer]) 2345-7 Glucose [Mass/volume ] in Serum or Plasma N 106 mg/dL 70 mg/dL - 110 mg/dL November 14, 2024 10:21:00 PM UT (TECH: [employer]) 3094-0 Urea nitrogen [Mass/volume] in Serum or Plasma N 15 mg/dL 7 mg/dL - 18 mg/dL November 14, 2024 10:21:00 PM [facility] (TECH: [employer]) 2160-0 Creatinine [Mass/volume] in Serum or Plasma H 1.1 mg/dL 0.6 mg/dL - 1.0 mg/dL November 14, 2024 10:21:00 PM UT (TECH: [employer]) 3097-3 Urea nitrogen/Creatinine [Mass Ratio] in Serum or Plasma N 13.6 - November 14, 2024 10:21:00 PM [facility] (TECH: [employer]) 76529-5 Glomerular filtratio n rate/1.73 sq M.predicted by Creatinine-based formula (MDRD) L 55 mL/min >60 November 14, 2024 10:21:00 PM [facility] (TECH: [employer]) 44666-3 Osmolality of Serum or Plasma by calculated by sum of electrolytes N 288 mosm/kg 275 mosm/kg - 301 mosm/kg November 14, 2024 10:21:00 PM [facility] (TECH: [employer]) 2885-2 Protein [Mass/volume ] in Serum or Plasma N 6.8 g/dL 6.4 g/dL - 8.2 g/dL November 14, 2024 10:21:00 PM [facility] (TECH: [employer]) 1751-7 Albumin [Mass/volume ] in Serum or Plasma N 3.9 g/dL 3.4 g/dL - 5.0 g/dL November 14, 2024 10:21:00 PM [facility] (TECH: [employer]) 90360-7 Calcium [Mass/volume ] in Serum or Plasma N 9.8 mg/dL 8.5 mg/dL - 10.1 mg/dL November 14, 2024 10:21:00 PM [facility] (TECH: [employer]) 20595-1 Calcium [Mass/volume ] corrected for total protein in Serum or Plasma N 9.9 mg/dL 8.5 mg/dL - 10.1 mg/dL November 14, 2024 10:21:00 PM [facility] (TECH: [employer]) 1975-2 Bilirubin.total [Mass/volume] in Serum or Plasma N 0.4 mg/dL 0.4 mg/dL - 1.5 mg/dL November 14, 2024 10:21:00 PM UT (TECH: [employer]) 1920-8 Aspartate aminotransferase [Enzymatic activity/volume] in Serum or Plasma N 19 U/L 15 U/L - 37 U/L November 14, 2024 10:21:00 PM UT (TECH: [employer]) 1742-6 Alanine aminotransferase [Enzymatic activity/volume] in Serum or Plasma N 15 U/L 12 U/L - 78 U/L November 14, 2024 10:21:00 PM UT (TECH: [employer]) 6768-6 Alkaline phosphatase [Enzymatic activity/volume] in Serum or Plasma N 57 U/L 53 U/L - 141 U/L November 14, 2024 10:21:00 PM UT (TECH: [employer]) ORDER 400: CK MB (LOINC: 326 73-6) ORDER DATE: November 14, 2024 9:35:00 PM UT Specimen Source: Plasma Specimen Type: Plasma specim en PERFORMING LAB: [address] [id number] Result Comment: Final Result Date: November 14, 2024 10:22:00 PM [facility] (TECH: [employer]) LOINC TEST FLAG RESULT [place] [address]-0 Creatine kinase.MB [Enzymatic activity/volume] in Serum or Plasma H 4.3 ng/mL 0.0 ng/mL - 3.6 ng/mL November 14, 2024 10:22:00 PM UT (TECH: [employer]) ORDER 500: LACTIC ACID (LOIN C: 66300-4) ORDER DATE: November 14, 2024 9:35:00 PM UT Specimen Source: Serum/Plasm a Specimen Type: Acellular blo od (serum or plasma) specimen PERFORMING LAB: [address] [id number] Result Comment: Final Result Date: November 14, 2024 10:14:00 PM UT (TECH: [employer]) LOINC TEST FLAG RESULT [place] [address]-7 Lactate [Mass/volume] in Serum or Plasma N 1.5 mmole/L 0.4 mmole/L - 2.0 mmole/L November 14, 2024 10:14:00 PM UT (TECH: [employer]) ORDER 600: PT PROTHROMBIN TI ME W INR (LOINC: 53140-8) ORDER DATE: November 14, 2024 9:35:00 PM UTC Specimen Source: Plasma Specimen Type: Plasma specim en PERFORMING LAB: [address] [id number] Result Comment: Final Result Date: November 14, 2024 10:26:00 PM UTC (TECH: RJV) LOINC TEST FLAG RESULT [place] [address]-5 INR in Platelet poor plasma or blood by Coagulation assay N 12.0 seconds 9.1 seconds - 12.0 seconds November 14, 2024 10:26:00 PM UTC (TECH: RJV) 6301-6 INR in Platelet poor plasma by Coagulation assay H 1.11 0.9 - 1.1 November 14, 2024 10:26:00 PM UT (TECH: RJV) ORDER 700: PTT PARTIAL THROM B TIME (LOINC: 61631-9) ORDER DATE: November 14, 2024 9:35:00 PM UTC Specimen Source: Plasma Specimen Type: Plasma specim en PERFORMING LAB: [address] [id number] Result Comment: Final Result Date: November 14, 2024 10:26:00 PM UTC (TECH: RJV) LOINC TEST FLAG RESULT [place] [address]-7 Activated partial thromboplastin time (aPTT) in Platelet poor plasma by Coagulation assay N 26.1 seconds 24.5 seconds - 32.8 seconds November 14, 2024 10:26:00 PM UT (TECH: RJV) ORDER 800: TROPONIN QUANT (L OINC: 06786-1) ORDER DATE: November 14, 2024 9:35:00 PM UTC Specimen Source: Plasma Specimen Type: Plasma specim en PERFORMING LAB: [address] [id number] Result Comment: Final Result Date: November 14, 2024 10:13:00 PM UT (TECH: RJV) LOINC TEST FLAG [place] [address]-0 Troponin I.cardiac panel - Serum or Plasma by High sensitivity method N 5 ng/L 0 ng/L - 51 ng/L November 14 10:13:00 PM UTC (TECH: RJV) ORDER 1000: TROPONIN I 1 RAFFI R PROTOCOL (LOINC: 15547-8) ORDER DATE: November 14, 2024 9:35:00 PM UTC Specimen Source: Plasma Specimen Type: Plasma specim en PERFORMING LAB: [address] [id number] Result Comment: Final Result Date: November 14, 2024 11:26:00 PM UT (TECH: RJV) LOINC TEST FLAG RESULT [place] [address]-7 Troponin I.cardiac p sandoval - Serum or Plasma by High sensitivity method N 5 ng/L 0 ng/L - 51 ng/L November 14 11:26:00 PM UTC (TECH: RJV) LABORATORY NARRATIVE RESULTS Information is not available RADIOLOGY RESULTS ORDER 1200: CHEST PA AND LAT (LOINC: 41271-3) ORDER DATE: November 14, 2024 10:11:00 PM UTC PERFORMING LAB: [address] [id number] Final Result Date: November 14, 2024 10:25:[address] [place] [id number] Name: CODI KESSLER Exam Date: 11/14/2024 : 1960 Age 64 years Gender: F Physician: RAMYA CASTILLO Facility: [facility] Facility HSV: Outpatient Exam: CHEST PA & LAT EXAM DESCRIPTION: CHEST PA & LAT CLINICAL HISTORY: 64 years Female, shortness of breath with a history of asthma TECHNIQUE: Conventional radiography. COMPARISON: Radiograph 03/08/2022 FINDINGS: PA and lateral views of the chest were obtained. The cardiomediastinal silhouette is unremarkable. The lungs are clear. No pleural effusion or pneumothorax is evident. Scoliotic curvature of the spine is seen. No acute skeletal abnormality is identified. IMPRESSION: No acute cardiopulmonary process. Electronically signed by: Wenceslao Lamas MD 11/14/2024 06:33 PM EDT Dictated By: Wenceslao Lamas Transcribed By: Transcribed On: 11/14/2024 6:25 PM Electronically signed by: Wenceslao Lamas 11/14/2024 Thank you for referring CODI KESSLER to [facility]. Legally authenticated by STAR ANDRADE MD 2024-11-14 18:25:54 PATHOLOGY NARRATIVE RESULTS Information is not available MICROBIOLOGY RESULTS No Micro Labs/Results Exist for Patient BLOOD ADMIN RESULTS Information is not available TREATMENT PLAN DISCHARGE MEDICATIONS Status RXNORM Medication Dose Route Frequency Dates Comments U pdated By Patient discharge medication information is not available. PATIENT OPEN ORDERS Code System Description Frequency Occurrences Priority [place] [address]-8 [facility] EKG study ONE TIME 0 Stat November 14, 2024 9:35:00 PM [facility] JANEY MADISON MD [id number] on November 14, 2024 9:35:00 PM [facility] SCHEDULED PROCEDURES Code System Description Status Scheduled Date Upd ated By Patient scheduled procedure information is not available. MEDICATIONS HOME MEDICATIONS Status RXNORM NDC Medication Dose Route Frequency Dates Comments Reported By Updated By Drug Treatment Unknown DISCHARGE MEDICATIONS Status RXNORM NDC Medication Dose Route Frequency Dates Comments Physician Updated By No Discharge Medication Info rmation Available INPATIENT MEDICATIONS Status RXNORM NDC Medication Dose Route Frequency Rat e Quantity Dates Comments Physician Updated By Katt inued [id number] 3119 7020 101 DUONEB 0.5-2.5 MG/3 ML SOLN 1.0 NEB INHALE D ONE TIME ONLY Start: November 14, 2024 9:46:0 0 PM UT End: November 14, 2024 9:46:0 0 PM UT JANEY MADISON MD INTERFAC ED on November 14, 2024 9:44:00 PM UT Discronna inued [id number] 3025 803 METHYLPREDN ISOLONE SODIUM SUCC 125 MG SOLR 125.0 MG INTRAV ENOUS ONE TIME ONLY Start: November 14, 2024 9:50:0 0 PM UT End: November 14, 2024 9:50:0 0 PM UT JANEY MADISON MD INTERFAC ED on November 14, 2024 9:49:00 PM [facility] SOCIAL HISTORY SOCIAL HISTORY SNOMED-CT Social History Element Description Effective Dates Offered Cessation Comment UpdatedBy [id number] Current Tobacco smoking status Never Smoked [id number] on November 15, 2024 12:00:43 AM [facility] SOCIAL HISTORY - Gender Sex: Female SOCIAL HISTORY - Status : status i nformation is not available Intention in Next Year: intention information is not available SOCIAL HISTORY - Sexual Behavior Sexual Orientation Gender Identity SNOMED-CT Description SNO MED -CT Description Activity Level No of Partners Partner Type UpdatedBy Information is not available HEALTH CONCERNS Problems Concern Status Health Concern problem infor mation not available. Smoking Status Status Years Used Consumed packs p er day Health Concern smoking histo ry information not available. Family History Concern Status Health Concern family histor y information not available. ENCOUNTERS ENCOUNTER INFORMATION Reason for Visit SHORTNESS OF BREATH Admission November 14, 2024 9:22:[address] [phone] Discharge November 15, 2024 12:02:00 AM [facility] DI SCHARGED TO HOME OR SELF CARE ENCOUNTER DIAGNOSES Notes information is not audrey ilable. Code System Diagnosis Onset Date Diagnosis information is not available. ABSTRACT DIAGNOSES Code System Diagnosis Updated By R06.02 ICD10 SHORTNESS OF BREATH [id number] on November 16, 2024 3:18:12 AM [facility] R09.89 ICD10 OTHER SPECIFIED SYMPTOMS AND SIGNS INVOLVING THE CIRCULATORY AND RESPIRATORY SYSTEMS [id number] on November 16, 2024 3:18:12 AM [facility] R20.0 ICD10 ANESTHESIA OF SKIN [id number] o n November 16, 2024 3:18:12 AM [facility] J45.909 ICD10 UNSPECIFIED ASTHMA, UNCOMPLI CATED [id number] on November 16, 2024 3:18:12 AM [facility] I25.2 ICD10 OLD MYOCARDIAL INFARCTION BY [id number] on November 16, 2024 3:18:12 AM [facility] Z88.1 ICD10 ALLERGY STATUS T O OTHER ANTIBIOTIC AGENTS [id number] on November 16, 2024 3:18:12 AM [facility] CARE TEAM Care Crime Analyst Role DE TRIPLETT Primary Care RAMYA CASTILLO Primary Attending RAMYA CASTILLO Admitting GLORIA ALANIZ Referring CARE TEAM CARE information and referral director Role on Team Status Start Date End Date Update d By CORBIN CASTRO Referring normal November 14 4:00:00 AM [facility] November 15, 2024 12:02:00 AM [facility] [id number] on November 15, 2024 3:06:05 AM [facility] ANNA Soria MD Referring normal November 14 10:05:27 PM [facility] November 14, 2024 4:00:00 AM [facility] [id number] on November 15, 2024 3:06:05 AM [facility] ANNA Soria MD Attending normal November 14 10:05:27 PM [facility] November 15, 2024 12:02:00 AM [facility] [id number] on November 15, 2024 3:06:05 AM [facility] ANNA Soria MD Admitting normal November 14 10:05:27 PM [facility] November 15, 2024 12:02:00 AM [facility] [id number] on November 15, 2024 3:06:05 AM [facility] IOANA ALCALA [facility] normal November 14, 2024 9:22:57 PM [facility] November 15, 2024 12:02:00 AM [facility] [id number] on November 15, 2024 3:06:05 AM [facility]
--- OUTSIDE RECORDS SUMMARY | 2024-12-12 09:43 | XMS_ITS | Continuity of Care Document ---
Author Organization [facility] Phone Care Team Providers Care Slasher Tender Helper Name Role Phone ED TRIPLETT Unavailable ED TRIPLETT Primary Attending ED TRIPLETT Primary Care ED TRIPLETT Admitting ALLERGIES AND ADVERSE REACTIONS ALLERGIES AND ADVERSE REACTIONS Code System Allergy Substance Adverse Reaction Date Reaction (Severity) Comment [place] [address] RXNorm Levaquin Adverse reaction to substance Not Specified active [id number] on February 23, 2024 9:23:12 PM [facility] 6398 RXNorm LINCOMYCIN Rash active [id number] on February 23, 2024 9:23:12 PM [facility] RESULTS Patient: CHECO Soria Date of : October 07 9 LABORATORY RESULTS Information is not available LABORATORY NARRATIVE RESULTS Information is not available RADIOLOGY RESULTS ORDER 100: ALEM SCREEN MAMMO W CAD BILAT (LOINC: 39246-1) ORDER DATE: October 31, 2024 5:08:00 PM [facility] PERFORMING LAB: [address] [id number] Final Result Date: October 31, 2024 5:08:[address] [place] [address] Name: CODI KESSLER Exam Date: 10/31/2024 : 1960 Age 64 years Gender: F Physician: ED TRIPLETT Facility: [facility] Facility HSV: Outpatient Exam: ALEM SCREEN MAMMO W CAD BILAT Exam: 3-D screening mammography including tomosynthesis and CAD (Computer Assisted Detection). Clinical indication: Asymptomatic screening exam Comparison: Exams to 2018 TECHNIQUE: Routine bilateral 2D screening mammogram with CC and MLO views obtained. 3-D tomosynthesis and Computer assisted detection were utilized for this exam. BREAST DENSITY: The breasts are heterogeneously dense, which may obscure small masses FINDINGS: No suspicious mass, architectural distortion, or suspicious calcifications are present. IMPRESSION: No evidence of malignancy in either breast Recommendation: Annual screening mammography recommended in one year The results of this report will be communicated to the patient by letter in layman's terms. ACR BI-RADS: BI-RADS assessment category 1: Negative mammogram Mammography does not detect approximately 10-15% of breast cancers. A normal mammogram does not exclude breast cancer in a patient with palpable mass or abnormal findings on physical examination. These patients may need biopsies and when clinically indicated a biopsy should not be postponed because of a normal mammogram. If the patient has breast surgery or biopsy, FDA/SA Regulatory Guidelines mandate that this facility receive pathologic results for follow-up correlation. Electronically signed by: Graham Salazar MD 10/31/2024 01:39 PM EDT Dictated By: Graham Salazar Transcribed By: Transcribed On: 10/31/2024 1:08 PM Electronically signed by: Graham Salazar 10/31/2024 Thank you for referring CODI KESSLER to [facility]. Legally authenticated by JANNA LEE MD 2024-10-31 13:08:00 PATHOLOGY NARRATIVE RESULTS Information is not available MICROBIOLOGY RESULTS No Micro Labs/Results Exist for Patient BLOOD ADMIN RESULTS Information is not available MEDICATIONS HOME MEDICATIONS Status RXNORM NDC Medication Dose Route Frequency Dates Comments Reported By Updated By Drug Treatment Unknown DISCHARGE MEDICATIONS Status RXNORM NDC Medication Dose Route Frequency Dates Comments Physician Updated By No Discharge Medication Info rmation Available INPATIENT MEDICATIONS Status RXNORM NDC Medication Dose Route Frequency Rat e Quantity Dates Comments Physician Updated By No Inpatient Medication Info rmation Available SOCIAL HISTORY SOCIAL HISTORY SNOMED-CT Social History Element Description Effective Dates Offered Cessation Comment UpdatedBy [id number] Historical Tobacco smoking status Never Smoked [id number] on November 09, 2023 1:28:40 PM [facility] SOCIAL HISTORY - Gender Sex: Female SOCIAL [...] available. ENCOUNTERS ENCOUNTER INFORMATION Reason for Visit ANNUAL MAMM Admission October 31, 2024 4:49:00 PM [facility] [address] [facility] [address] Discharge November 01, 2024 4:49:00 AM [facility] DI SCHARGED TO HOME OR SELF CARE ENCOUNTER DIAGNOSES Notes information is not audrey ilable. Code System Diagnosis Onset Date Diagnosis information is not available. ABSTRACT DIAGNOSES Code System Diagnosis Updated By Z12.31 ICD10 ENCOUNTER FOR SC REENING MAMMOGRAM FOR MALIGNANT NEOPLASM OF BREAST [id number] on November 03, 2024 10:54:12 AM [facility] Z12.31 ICD10 ENCOUNTER FOR SC REENING MAMMOGRAM FOR MALIGNANT NEOPLASM OF BREAST [id number] on November 03, 2024 10:54:15 AM [facility] CARE TEAM Care Slasher Tender Helper Role ED TRIPLETT Referring ED TRIPLETT Primary Attending ED TRIPLETT Primary Care ED TRIPLETT Admitting CARE TEAM CARE vacuum evaporation operator Role on Team Status Start Date End Date Update d By IOANA ALCALA PCP normal October 25, 2024 3:51:43 PM [facility] November 01, 2024 4:49:00 AM [facility] [id number] on October 25, 2024 3:51:43 PM [facility] IOANA ALCLAA Referring normal October 25, 2024 3:51:43 PM [facility] November 01, 2024 4:49:00 AM [facility] [id number] on October 25, 2024 3:51:43 PM [facility] IOANA ALCALA Attending normal October 25, 2024 3:51:43 PM [facility] November 01, 2024 4:49:00 AM [facility] [id number] on October 25, 2024 3:51:43 PM [facility] IOANA ALCALA Admitting normal October 25, 2024 3:51:43 PM [facility] November 01, 2024 4:49:00 AM [facility] [id number] on October 25, 2024 3:51:43 PM [facility]
[2024-12-12 10:08] LABS: Blood Urea Nitrogen 13 mg/dl (7-17); Estimated Glomerular Filt Rate 72 ml/min (>60); GFR (African American) 87 ML/MIN (>60)
[2024-12-12] MEDS: GADOTERIDOL INJ 10ML SYRINGE 10 ML IV (11:52)
[2024-12-12] MEDS: GADOTERIDOL INJ 20ML SYRINGE 3 ML IV (11:52)
[2024-12-12] MEDS: SODIUM CHLORIDE 0.9% 10ML SYR (RAD ONLY) 10 ML IV (11:52)
== END 2024-12-12 23:59 | disposition home or self-care (01) ==
LOC: RAD 09:40
PROVIDERS: PCP Family Medicine; Visit Provider Nurse Practitioner
DX: I42.1 Obstructive hypertrophic cardiomyopathy (principal); I10 Essential (primary) hypertension; R53.83 Other fatigue
CPT/HCPCS: 36415; 75561; 82565; 84520; A9576

== ENCOUNTER 2025-06-11 08:48 | Day surgery (SDC) | payer MEDICARE, OTHER, SELFPAY ==
--- NOTE | 2025-06-07 07:20 | EXP.HP ---
History of Present Illness *Admission Date: 06/11/25 *History of present illness: Mrs. Humphrey is a 64-year-old female who is here for diagnostic EGD. The patient has had chronic GERD. She does get reflux at nighttime which refluxes up into her throat. She does get globus sensation and also feels that swallowing pills are slow to go down. She has has had a couple of previous upper endoscopies and her last was in 2017 (in [place]). She does take Zantac which helps but only uses this about once a week. Tums is not helping much. The examination is deemed medically necessary for diagnostic EGD. The patient has been seen, interviewed and examined prior to the procedure by both myself and the anesthesia provider. [facility] Disclaimer: The information contained in this section may have been updated after the patient was seen, as this information can be updated by other users. Medical History Fibrosis of lung Fatigue Dyspnea HLD (hyperlipidemia) Thoracic aneurysm without mention of rupture LV dysfunction Aortic insufficiency Aortic root enlargement Takotsubo cardiomyopathy Hypertension Bronchitis, chronic Surgical History (Updated 06/11/25 @ 09:05 by Dolores Saldana) Hx of tonsillectomy History of appendectomy Social History (Updated 06/11/25 @ 09:15 by Omar Bishop CRNA) Smoking Status: Former smoker alcohol intake: never substance use type: denies use current occupational status: retired Travel in the last 8 weeks?: Inside the [place] household members: spouse housing: house caffeine: No Have you lived/traveled outside US in past 30 days?: No Contact w/someone who lives/traveled outside US past 30 days?: No Exposure to someone with infectious disease in past 14 days?: No Do you have a fever (greater than 100.4 F or 38 C)?: No Have you tested positive for COVID-19?: No Exposed to someone with COVID-19 in past 14 days?: No Do you have a sore throat?: No Do you have a cough?: No Do you have any weakness?: No Do you have any diarrhea?: No Are you experiencing any unusual bleeding?: No Do you have any muscle aches/pain?: No Do you have any abdominal pain?: No Are you experiencing loss of taste or smell?: No Other Medical History Have you received the Flu Vaccine for this season: No Have you received the Pneumonia Vaccine: Yes Review of Systems Review of Systems Review of systems (narrative): Negative *Cardiovascular Comments: Negative *Gastrointestinal Comments: Negative *Genitourinary Comments: Negative *Musculoskeletal Comments: Negative *Neurologic Comments: Negative Meds Home Medications and Allergies Home Medications ?Medication ?Instructions ?Recorded ?Confirmed ?Type cetirizine 10 mg tablet 10 mg PO DAILY Allergy symptoms 03/08/22 06/11/25 History lisinopril 5 mg tablet 5 mg PO DAILY #90 tabs 06/22/24 06/11/25 Rx metoprolol succinate 25 mg See Rx Instructions .Route 01/10/25 06/11/25 Rx tablet,extended release 24 hr .COMPLEX #90 tabs calcium carbonate (Calcium 600) 600 mg PO DAILY 04/10/25 06/11/25 History cholecalciferol (vitamin D3) 50 50 mcg PO DAILY 04/10/25 06/11/25 History mcg (2,000 unit) capsule amoxicillin 875 mg-potassium 1 tab PO BID 10 days #20 tabs 06/04/25 06/11/25 Rx clavulanate 125 mg tablet ranitidine HCl 150 mg capsule 150 mg PO DAILY 06/04/25 06/11/25 History New Prescriptions to Start Prescriptions: Allergies Allergy/AdvReac Type Severity Reaction Status Date / Time Sulfa (Sulfonamide Allergy Intermediate Hives Verified 06/04/25 12:57 Antibiotics) levofloxacin (From Levaquin) Allergy Anaphylaxis Verified 06/04/25 12:57 Exam *Routine HEENT Exam Head: Present normocephalic Eye: Present EOMI and PERRL ENT: Present mucous membranes moist *Routine Neck Exam Neck: Present supple *Routine Respiratory Exam Respiratory: Present CTA bilaterally *Routine Cardiovascular Exam Cardiovascular: Present RRR *Routine Abdominal Exam Abdominal: Present soft and normoactive bowel sounds; Absent tenderness *Routine Rectal Exam Rectal:: deferred *Routine Genitalia Exam Genitalia:: deferred *Routine Extremities Exam Extremities: Absent cyanosis, clubbing or edema *Routine Skin Exam Skin: Present warm; Absent rash *Routine Neurological Exam Neurological: Present alert and oriented X3 Assessment and Plan *Assessment and plan (1) Gastroesophageal reflux disease: Status: Chronic Category: Medical Code(s): K21.9 - Gastro-esophageal reflux disease without esophagitis (2) Globus sensation: Status: Acute Category: Medical Code(s): R09.A2 - Foreign body sensation, throat Plan A/P: 1. GERD with globus sensation is the preprocedural diagnosis. The patient will be anesthetized/sedated using MAC sedation. The patient has been seen and examined. Cardiac and lung assessment prior to the examination is stable. Proceed with planned diagnostic EGD.
--- NOTE | 2025-06-11 07:01 | HMH.PROCNOTE ---
[facility] Procedure Note Date: 06/11/25 Time: 10:24 Procedure Note:: Upper Endoscopy Procedure Report: Esophagogastroduodenoscopy with cold biopsies and TTS balloon dilation Endoscopost: Sukhjinder Corrigan II, MD Referring Physician: Dorie Gifford DO Date of Procedure: June 11, 2025 Equipment: Olympus GIF-1100 standard upper endoscope Sedation: MAC sedation Indications: Mrs. Humphrey is a 64-year-old female who is here for diagnostic EGD. The patient has had chronic GERD. She does get reflux at nighttime which refluxes up into her throat. She does get some difficulty initiating a swallow and also feels that swallowing pills are slow to go down. She does report reflux and some belching. She reports no globus sensation or frequent clearance of the throat. She reports no abdominal pain, indigestion or bloating. She does have postprandial diarrhea which is chronic. She did have a colonoscopy last year at [facility]. She has has had a couple of previous upper endoscopies and her last was in 2017 (in [place]). She does take Zantac which helps but only uses this about once a week. Tums is not helping much. The examination is deemed medically necessary for diagnostic EGD. Procedure: Prior to the procedure, a history and physical exam was performed, and patient's medications and allergies were reviewed. The risks, benefits and alternatives of the sedation and procedure were discussed with the patient. All questions were answered and informed consent was obtained. The patient was brought to the procedure room. Patient identification and proposed procedure were verified by the physician and the nurse. The patient was placed in a left lateral decubitus position and the scope was passed under direct vision. Throughout the procedure, the patient's blood pressure, pulse, and oxygen saturations were monitored continuously. The upper GI endoscopy was accomplished without difficulty. The patient tolerated the procedure well. Findings: The scope was passed directly into the upper esophagus and advanced to the third portion of the duodenum. The post bulbar duodenum and duodenal bulb were normal with normal mucosa and conniventes. 2 cold biopsies were taken from the second portion of the duodenum for the disaccharidase assay. The scope was withdrawn through a normal duodenal bulb and pylorus into the stomach. There was mild linear reactive gastropathy of the antrum of the stomach with some bile reflux. The body and fundus of the stomach were normal. There appeared to be some granulation tissue along the posterior wall and antrum possibly from prior peptic ulcer disease. Upon retroflexion there was no hiatal hernia. 2 cold biopsies were taken from the incisura to rule out H. pylori. The scope was then withdrawn into the esophagus. There was no evidence of reflux esophagitis or Corrigan's. There were no rings, corrugation, furrowing or inlet patch. There were tertiary contractions and evidence of mild esophageal dysmotility. The entire esophagus was dilated to 60 [place]/20 mm with a TTS hydrostatic balloon. There was mild resistance at the cricopharyngeus. The remainder of the esophageal mucosa was normal. Impression: 1. Cricopharyngeal spasm (mild) 2. Nonerosive GERD with mild esophageal dysmotility 3. Mild linear reactive gastropathy of antrum with bile reflux Plan: I will follow-up the biopsies and disaccharidase assay. I do feel this is gas driven bile reflux causing her esophageal dysmotility and cricopharyngeal spasm resulting in the symptoms. We will discuss treatment options.
[2025-06-11 08:52] VITALS: BMI 21.8
[2025-06-11 09:00] VITALS: BP 119/71; PULSE 80; RESP 16; TEMP 36.5; O2SAT 98
[2025-06-11] MEDS: LACTATED RINGERS 1000ML 1,000 ML 50 ML IV (09:07)
--- NOTE | 2025-06-11 09:14 | EXP.ANES.CKL ---
[facility] Disclaimer: The information contained in this section may have been updated after the patient was seen, as this information can be updated by other users. Medical History Fibrosis of lung Fatigue Dyspnea HLD (hyperlipidemia) Thoracic aneurysm without mention of rupture LV dysfunction Aortic insufficiency Aortic root enlargement Takotsubo cardiomyopathy Hypertension Bronchitis, chronic Surgical History (Updated 06/11/25 @ 09:05 by Dolores Saldana) Hx of tonsillectomy History of appendectomy Social History Smoking Status: Former smoker alcohol intake: never substance use type: denies use current occupational status: retired Travel in the last 8 weeks?: Inside the [place] household members: spouse housing: house caffeine: No [facility] Anesthesia Checklist Patient Identification Patient Identification: Arm Band and Verbal (Name & ) Structural Data Admitted From: Home Planned Operative Procedure/s: EGD Consent for Planned Operative Procedure(s) Verified: Yes NPO Status Verified Time NPO: 00:00 Additional verifications Anesthesia Reactions: No Airway Assessment Mallampati Score:: Class II C-Spine Mobility Assessed: Yes TMJ Mobility Assessed: Yes Dentition: Good Dentition Neurological Assessment Level of Consciousness: Awake, Alert and Appropriate Hx Seizures: No Numbness or tingling in extremities: No Anesthesia Plan Anesthesia Risk discussed: Yes Anesthesia Plan: Verified ASA Class: II Anesthesia Type: MAC
[2025-06-11 10:26] VITALS: BP 107/69; PULSE 76; RESP 18; TEMP 36.6; O2SAT 95
[2025-06-11 10:36] VITALS: BP 112/70; PULSE 71; RESP 18; TEMP 36.6; O2SAT 97
[2025-06-11 10:46] VITALS: BP 109/69; PULSE 72; RESP 18; TEMP 36.6; O2SAT 98
[2025-06-11 10:56] VITALS: BP 110/70; PULSE 74; RESP 18; TEMP 36.6; O2SAT 97
[2025-06-14 14:45] LABS: Interpretation Notes (.); Lactase 12.75 (>/= 14.0); Maltase 79.43 (>/= 110.0); Palatinase 5.83 (>/= 8.5); Reference Notes (.); Sucrase 14.57 (>/= 25.0)
== END 2025-06-11 11:20 | disposition home or self-care (01) ==
PROVIDERS: PCP Family Medicine; Visit Provider Internal Medicine Gastroenterology
PROC: 0DJ08ZZ Inspection of Upper Intestinal Tract, Via Natural or Artificial Opening Endoscopic (ICD-10-PCS; CPT 43239; principal; 2025-06-11 10:30)
DX: K21.9 Gastro-esophageal reflux disease without esophagitis (principal); K31.89 Other diseases of stomach and duodenum; K22.4 Dyskinesia of esophagus; I10 Essential (primary) hypertension; I35.1 Nonrheumatic aortic (valve) insufficiency; Z88.2 Allergy status to sulfonamides; Z88.1 Allergy status to other antibiotic agents
CPT/HCPCS: 43239; 43249; 82657; 88305; C1726; J2003; J2704; J7120